=== PATIENT | male | born 2000 | race Caucasian/White ===

== ENCOUNTER 2021-05-27 07:41 | Outpatient (REF) | payer OTHER, MEDICAID, SELFPAY ==
[2021-05-27 10:50] LABS: Alanine Aminotransferase 14 U/L (0-40); Albumin Level 4.5 g/dL (3.5-5.0); Alkaline Phosphatase 78 U/L (39-117); Anion Gap 10 (12-20); Aspartate Amino Transferase 14 U/L (5-37); Bilirubin Total 3.2 mg/dL (0.0-1.0); Blood Urea Nitrogen 11 mg/dL (9-16); Calcium 10.1 mg/dL (8.4-10.2); Carbon Dioxide 31 mmol/L (22-29); Chloride 103 mmol/L (96-108); Cholesterol 133 mg/dL; Estimated Glomerular Filt Rate > 60; Glucose Fasting 88 mg/dL (60-99); HDL Cholesterol 47 mg/dL; LDL Cholesterol Calculated 74 mg/dl; Potassium 4.3 mmol/L (3.3-5.1); Sodium 140 mmol/L (135-145); Total Protein 7.2 g/dL (6.5-8.0); Triglycerides 61 mg/dL
[2021-05-27 11:13] LABS: TSH reflex Free T4 1.63 uIU/mL (0.32-4.0)
== END 2021-05-27 07:42 | disposition home or self-care (01) ==
LOC: HO.WFDLDS 07:41
PROVIDERS: Visit Provider Family Medicine
DX: Z00.00 Encounter for general adult medical examination without abnormal findings (principal)
CPT/HCPCS: 36415; 80053; 80061; 84443

== ENCOUNTER 2021-07-06 07:42 | Outpatient (REF) | payer OTHER, MEDICAID, SELFPAY ==
[2021-07-06 11:44] LABS: MANUAL DIFF FLAG NO
[2021-07-06 11:51] LABS: Basophils Percent Auto 0.4 % (0-2); Eosinophils Absolute Auto 0.7 X10*3/uL (0.0-0.4); Eosinophils Percent Auto 10.3 % (0-4); Hematocrit 49.1 % (42.0-52.0); Hemoglobin 16.6 g/dl (14.0-18.0); INTERNATIONAL NORM RATIO 1.1 (0.9-1.1); Imm Gran Abs Auto 0.01 X10*3/uL (0.00-0.03); Imm Gran Pct Auto 0.1 % (0.0-0.4); Lymphocytes Absolute Auto 2.9 X10*3/uL (1.2-4.9); Lymphocytes Percent Auto 41.5 % (20-40); Mean Corpuscular HGB Conc 33.8 g/dl (31.0-36.0); Mean Corpuscular Hemoglobin 28.9 pg (27.0-33.0); Mean Corpuscular Volume 85.5 fL (80.0-98.0); Mean Platelet Volume 11.2 fL (9.4-12.4); Monocytes Absolute Auto 0.5 X10*3/uL (0.1-1.2); Monocytes Percent Auto 6.9 % (2-11); Neutrophils Absolute Auto 2.8 x10*3/uL (2.0-8.3); Neutrophils Percent Auto 40.8 % (45-73); Platelet Count 296 X10*3/uL (160-400); Prothrombin Time 12.1 SEC (9.9-13.0); Red Blood Count 5.74 X10*6/uL (4.60-5.80); Red Cell Distribution Width 12.6 % (11.0-16.0); White Blood Count 6.9 X10*3/uL (4.8-10.8)
[2021-07-06 12:40] LABS: HBc Num1 0.11 S/CO (0.00-0.79); Hepatitis B Core Antibody Nonreactive (Nonreactive)
[2021-07-06 12:42] LABS: Alanine Aminotransferase 15 U/L (0-40); Albumin Level 4.8 g/dL (3.5-5.0); Alkaline Phosphatase 75 U/L (39-117); Aspartate Amino Transferase 15 U/L (5-37); Bilirubin Direct 0.5 mg/dL (0.0-0.5); Bilirubin Total 1.6 mg/dL (0.0-1.0); HBS Num1 2.43 mIU/mL (0-7.99); HBsAGNum1 0.22 S/CO (0.00-0.99); Hepatitis B Surface Antigen Negative (Negative); Total Protein 7.8 g/dL (6.5-8.0); ~HepC Num1 0.23 S/CO (0.00-0.79); ~Hepatitis B Surface Antibody NONREACTIVE (Nonreactive); ~Hepatitis C Antibody Nonreactive (Nonreactive)
== END 2021-07-06 07:43 | disposition home or self-care (01) ==
LOC: HO.WFDLDS 07:42
PROVIDERS: Visit Provider Family Medicine
DX: Z00.00 Encounter for general adult medical examination without abnormal findings (principal); R17 Unspecified jaundice
CPT/HCPCS: 36415; 80076; 85025; 85610; 86704; 86706; 86803; 87340

== ENCOUNTER 2022-03-15 08:53 | Outpatient (REF) | payer OTHER, MEDICAID, SELFPAY ==
[2022-03-15 11:53] LABS: Alanine Aminotransferase 19 U/L (0-40); Albumin Level 4.5 g/dL (3.5-5.0); Alkaline Phosphatase 82 U/L (39-117); Anion Gap 11 (12-20); Aspartate Amino Transferase 18 U/L (5-37); Bilirubin Total 1.4 mg/dL (0.0-1.0); Blood Urea Nitrogen 10 mg/dL (9-16); Calcium 9.6 mg/dL (8.4-10.2); Carbon Dioxide 27 mmol/L (22-29); Chloride 105 mmol/L (96-108); Estimated Glomerular Filt Rate > 60; Glucose Random 79 mg/dL (60-115); Potassium 4.5 mmol/L (3.3-5.1); Sodium 138 mmol/L (135-145); Total Protein 7.3 g/dL (6.5-8.0)
[2022-03-15 11:56] LABS: Bilirubin Direct 0.5 mg/dL (0.0-0.5); Bilirubin Total 1.2 mg/dL (0.0-1.0)
== END 2022-03-15 08:54 | disposition home or self-care (01) ==
LOC: HO.WFDLDS 08:53
PROVIDERS: Visit Provider Family Medicine
DX: R17 Unspecified jaundice (principal)
CPT/HCPCS: 36415; 80053; 82247; 82248

== ENCOUNTER 2022-09-24 13:01 | Outpatient (REF) | payer OTHER, MEDICAID, SELFPAY ==
--- NOTE | ~2022-09-24 | XR_ITS ---
EXAMINATION: XR CHEST CLINICAL INFORMATION: Cough COMPARISON: None TECHNIQUE: 2 views of the chest were obtained. FINDINGS: No significant abnormality is noted involving the heart, lungs, mediastinum, bony thorax or soft tissues. XR/XR chest 2V IMPRESSION: Unremarkable examination.
== END 2022-09-24 13:02 | disposition home or self-care (01) ==
LOC: HO.HMGCX 13:01
PROVIDERS: PCP Family Medicine; Visit Provider Family Medicine
DX: R05.9 Cough, unspecified (principal)
CPT/HCPCS: 71046

== ENCOUNTER 2023-07-05 14:07 | Outpatient (AMB) | payer OTHER, MEDICAID, SELFPAY ==
--- NOTE | 2023-07-05 14:11 | A.OFFPC_ITS ---
Vital Signs 07/05/23 14:12 Height 5 ft 8 in Weight 168 lb 4 oz BMI 25.6 BP 124/80 Blood Pressure Location Lt brachial Position Sitting Pulse 77 Pulse Source Pulse Oximeter Pulse Oximetry (%) 98 Intake Visit Reasons: CPE Intake Note: Patient is here for his physical today. Allergies red dye Allergy (Verified 07/05/23 14:15) Hives Seasonal Allergies Allergy (Verified 07/05/23 14:15) Unknown Tobacco use date assessed: 07/05/23 Dental Screening Dental Screen Date: 07/05/23 Did you have a dental visit in the last 12 months?: Yes Did you have a dental problem in the last 6 months where you did not have access to dental care?: No Was dental information given to patient?: Patient has dentist HPI CPE HPI Details 22 y/o male presents for a CPE with f/u labs and health maintenance. No recent labs to review. He sees his eye doctor yearly. Pt reports an ongoing cough. HPI Comments History of Present Illness Details Documentation assistance for Lyndon Martínez MD, was provided by Rubén Quintana, Warrant Clerk on 07/05/2023 2:32 PM EST. I, Dr. Martínez, have read, observed, and verified documentation. REPLACED BY [facility] Surgical History History of wisdom tooth extraction Family History Mother No problems noted. Father No problems noted. Other ADHD Social History Housing: House Alcohol intake: never Patient Tobacco Use Status: Never used Tobacco e-Cigarette/Vaping Use: Never Used Second Hand Smoke Exposure: No service: No Current occupational status: employed and student Current occupational exposures/hazards: No Cognitive needs: No Hearing needs: No Vision needs: No Questionnaire Thrive Questionnaire Date Thrive assessed: 06/10/21 MARGE-7 AMB Questionnaire MARGE-7 Date MARGE - 7 assessed: 06/17/22 Source: Developed by Drs. Horacio Soto, Yaa Figueroa, Scout Reyez and colleagues, with an educational john from [employer]. Review of Systems Const Denies chills, Denies fatigue, Denies fever(s), Denies headache(s) and Denies weakness Eyes Denies change in vision ENT Denies dizziness, Denies headache(s), Denies hearing loss, Denies nasal congestion, Denies sinus pain, Denies sinus pressure and Denies sore throat Card Denies chest pain, Denies lightheadedness, Denies dyspnea and Denies other (palpitations) Resp Reports cough, Denies dyspnea and Denies wheezing GI Denies abdominal pain, Denies melena, Denies hematochezia, Denies change in bowel habits, Denies dyspepsia and Denies nausea Denies hematuria and Denies dysuria Musc Denies abnormal gait, Denies myalgias, Denies arthralgias, Denies numbness and Denies tingling Skin/Breast Denies rash, Denies unusual bruising and Denies wounds Neuro Denies abnormal gait, Denies dizziness, Denies headache(s), Denies memory loss, Denies numbness, Denies Sensory deficit (Neuro), Denies tingling and Denies weakness Psych Denies anxiety, Denies depression and Denies memory loss Endo Denies cold intolerance, Denies fatigue, Denies heat intolerance, Denies polydipsia and Denies polyuria Simon/Lymph Denies easy bleeding and Denies easy bruising Aller/Immun Denies wheezing Physical exam (Primary Care) Vital Signs: Last Vital Signs Pulse 77 07/05/23 14:12 BP 124/80 07/05/23 14:12 Pulse Ox 98 07/05/23 14:12 BMI result Body Mass Index 25.6 Tobacco/Smoking Status: Tobacco use Status Tobacco use date assessed 07/05/23 07/05/23 14:16 Patient Tobacco Use Status Never used Tobacco 07/05/23 14:12 e-Cigarette/Vaping Use Never Used 07/05/23 14:12 Thrive Assessment: Date of Thrive Assessment Date Thrive assessed 06/10/21 07/05/23 14:12 Const General: no acute distress, well developed, alert and awake Nutritional Appearance: well nourished Orientation/consciousness: patient oriented x3 HENMT Head: Yes normocephalic and Yes atraumatic Ears: hearing grossly normal bilaterally and TM's normal bilaterally General nose exam: Normal external nose present and Normal nares present Mouth: Normal oral and palatal mucosa present and moist mucous membranes Teeth and gingiva: dentition normal Throat: Yes posterior oropharynx normal Eyes General: appearance normal, both eyes and all related structures Pupils: Equal, round and reactive pupils present and Pupil accommodation reflex normal EOM: EOMs intact bilaterally Neck Neck: Yes normal visual inspection, Yes no lymphadenopathy and Yes trachea midli ne Thyroid: Thyroid normal Carotids: no bruits Lymphatic: no lymphadenopathy noted Chest Chest palpation & inspection: normal inspection of the chest Resp Effort & Inspection: normal respiratory effort Auscultation: clear to auscultation bilaterally Cardio Rate: regular rate Rhythm: regular rhythm Heart sounds: S1 normal heart sound present, S2 normal heart sound present, no gallops, no murmurs and no rubs Bruits: no abdominal aortic bruits and no carotid bruits GI Palpation (GI): No Abdominal aortic bruit present, Soft to palpation, nontender, No hepatosplenomegaly present and No Rebound tenderness present Auscultation: normal bowel sounds General: Yes no CVA tenderness Back/Spine/Pelvis Back: no CVA tenderness Cervical Spine: cervical ROM normal and No Cervical spine tenderness Thoracic/Lumbar Spine: thoraco-lumbar ROM normal, No pain with thoraco-lumbar ROM, No thoracic spinal tenderness and No lumbar spinal tenderness Skin Lesions: no lesions Rashes: no rashes Trauma: no lacerations or abrasions Wounds: no wounds Nails: normal Neuro General: patient oriented x3 Cranial nerves: Yes Equal, round and reactive pupils present Cognition (Neuro): normal cognition Gait exam (Neuro): Normal gait present Motor exam (neuro): 5/5 motor strength present throughout Sensory Exam: No Sensory deficit (Neuro) Deep tendon reflexes (DTR's): Right patellar reflex intensity grade: 2+ and Left patellar reflex intensity grade: 2+ Extrem General: Yes normal to inspection and No edema Psych Appearance: grossly normal Affect: normal affect Attitude: cooperative Thought process: Normal thought process present Assessment and Plan Assessment & Plan (1) Adult general medical exam: Code(s): Z00.00 - Encounter for general adult medical examination without abnormal findings Plan: 22-year-old?male?presents?for?complete?physical?exam Encouraged?healthy?diet?with?active?lifestyle?and?plenty?of?exercise (2) ADHD: Code(s): F90.9 - Attention-deficit hyperactivity disorder, unspecified type Plan: Stable?on?clonidine?index?methylphenidate (3) Aspergers' syndrome: Code(s): F84.5 - Asperger's syndrome Plan: Stable (4) Cough: Code(s): R05.9 - Cough, unspecified Plan: Continue?omeprazole?and?Flovent Albuterol?as?needed Coding Level of Care Code Est Pt Level 3 (96194) Est Pt Prev Care 18-39y(07823) Diagnoses Adult general medical exam Z00.00 ADHD F90.9 Aspergers' syndrome F84.5 Cough R05.9
[2023-07-05 14:12] VITALS: BP 124/80; PULSE 77; O2SAT 98; BMI 25.6
== END 2023-07-05 14:34 | disposition home or self-care (01) ==
PROVIDERS: PCP Family Medicine; Visit Provider Family Medicine
DX: Z00.00 Encounter for general adult medical examination without abnormal findings (principal); F90.9 Attention-deficit hyperactivity disorder, unspecified type; F84.5 Asperger's syndrome; R05.9 Cough, unspecified
CPT/HCPCS: 99395

== ENCOUNTER 2023-09-02 09:03 | Outpatient (REF) | payer OTHER, MEDICAID, SELFPAY ==
[2023-09-02 11:37] LABS: MANUAL DIFF FLAG NO
[2023-09-02 11:40] LABS: Basophils Percent Auto 0.2 % (0-2); Eosinophils Absolute Auto 0.7 X10*3/uL (0.0-0.4); Eosinophils Percent Auto 7.7 % (0-4); Hematocrit 49.3 % (42.0-52.0); Hemoglobin 16.6 g/dl (14.0-18.0); Imm Gran Abs Auto 0.02 X10*3/uL (0.00-0.03); Imm Gran Pct Auto 0.2 % (0.0-0.4); Lymphocytes Absolute Auto 2.8 X10*3/uL (1.2-4.9); Lymphocytes Percent Auto 30.5 % (20-40); Mean Corpuscular HGB Conc 33.7 g/dl (31.0-36.0); Mean Corpuscular Volume 83.1 fL (80.0-98.0); Mean Platelet Volume 10.8 fL (9.4-12.4); Monocytes Absolute Auto 0.8 X10*3/uL (0.1-1.2); Monocytes Percent Auto 8.4 % (2-11); Neutrophils Absolute Auto 4.9 x10*3/uL (2.0-8.3); Platelet Count 324 X10*3/uL (160-400); Red Blood Count 5.93 X10*6/uL (4.60-5.80); White Blood Count 9.2 X10*3/uL (4.8-10.8)
[2023-09-02 12:26] LABS: Alanine Aminotransferase 36 U/L (0-40); Albumin Level 4.5 g/dL (3.5-5.0); Alkaline Phosphatase 87 U/L (39-117); Anion Gap 13 (12-20); Aspartate Amino Transferase 22 U/L (5-37); Blood Urea Nitrogen 14 mg/dL (9-16); Calcium 10.1 mg/dL (8.4-10.2); Carbon Dioxide 29 mmol/L (22-29); Chloride 102 mmol/L (96-108); Cholesterol 169 mg/dL (<200); Estimated Glomerular Filt Rate > 60; Glucose Fasting 95 mg/dL (60-99); HDL Cholesterol 48 mg/dL (>40); LDL Cholesterol Calculated 94 mg/dL (<100); Potassium 4.1 mmol/L (3.3-5.1); Sodium 140 mmol/L (135-145); Triglycerides 135 mg/dL (<150)
== END 2023-09-02 09:04 | disposition home or self-care (01) ==
LOC: HO.WFDLDS 09:03
PROVIDERS: Visit Provider Family Medicine
DX: Z00.00 Encounter for general adult medical examination without abnormal findings (principal); I10 Essential (primary) hypertension
CPT/HCPCS: 36415; 80053; 80061; 84443; 85025

== ENCOUNTER 2023-12-07 15:38 | Outpatient (AMB) | payer OTHER, MEDICAID, SELFPAY ==
--- NOTE | 2023-12-07 15:52 | MHC.PC.OV ---
Vital Signs 12/07/23 15:59 Height 5 ft 8 in Weight 181 lb 8 oz BMI 27.6 BP 104/72 Blood Pressure Location Rt brachial Position Sitting Respiration 14 Pulse 80 Pulse Source Pulse Oximeter Temp 98.1 F Temp Source Oral Pulse Oximetry (%) 97 Oxygen Delivery Method Room Air Intake Visit Reasons: f/u ADHD Intake Note: Follow up for ADHD Metrology Specialist Required: No Allergies red dye Allergy (Verified 12/07/23 15:52) Hives Seasonal Allergies Allergy (Verified 12/07/23 15:52) Unknown Medication List - Last Reconciled 12/07/23 by Lyndon Martínez MD albuterol sulfate 90 mcg/actuation 0 mcg inhalation clonidine HCl 0.1 mg PO BEDTIME 30 days dexmethylphenidate ER 25 mg PO QAM 30 days fluticasone propionate 110 mcg/actuation (Flovent HFA) 2 puffs inhalation DAILY omeprazole 20 mg PO DAILY Tobacco use date assessed: 12/07/23 Dental Screening Dental Screen Date: 12/07/23 Did you have a dental visit in the last 12 months?: Yes Did you have a dental problem in the last 6 months where you did not have access to dental care?: No Was dental information given to patient?: Patient has dentist HPI f/u ADHD HPI Details 22 y/o male presents to f/u ADHD. He is on dexymethylphenidate ER 25mg. He denies any problems with increased anxiety, appetite issues, difficulty sleeping. He notes it has been working well for him. He reports cough has resolved and has been tolerating omeprazole 20mg daily. [facility], [facility] Surgical History History of wisdom tooth extraction Family History Mother No problems noted. Father No problems noted. Other ADHD Social History (Updated 12/07/23 @ 15:56 by Yudy Herrera CMA) Housing: House Alcohol intake: never Patient Tobacco Use Status: Never used Tobacco e-Cigarette/Vaping Use: Never Used Second Hand Smoke Exposure: No service: No Current occupational status: employed and student Current occupational exposures/hazards: No Cognitive needs: No Hearing needs: No Vision needs: No Questionnaire PHQ-9 Over the last 2 weeks, how often have you been bothered by any of the following problems? 1. Little interest or pleasure in doing things: not at all 2. Feeling down, depressed, or hopeless: not at all 3. Trouble falling or staying asleep, or sleeping too much: not at all 4. Feeling tired or having little energy: not at all 5. Poor appetite or overeating: not at all 6. Feeling bad about yourself - or that you are a failure or have let yourself or your family down: not at all 7. Trouble concentrating on things, such as reading the newspaper or watching television: several days 8. Moving or speaking so slowly that other people could have noticed. Or the opposite - being so fidgety or restless that you have been moving around a lot more than usual: not at all 9. Thoughts that you would be better off or of hurting yourself in some way: not at all Total score: 1 66693 - PHQ-9 Billing: Yes Source: Developed by Drs. Horacio Soto, Yaa Figueroa, Scout Reyez and colleagues, with an educational john from [employer]. Thrive Questionnaire Date Thrive assessed: 12/07/23 I am a: Patient What is your living situation today?: I have a steady place to live Within the past 12 months, did the food you bought not last and you didn't have the money to get more?: Never true Within the past 12 months, did you worry whether your food would run out before you got money to buy more?: Never true Do you have trouble paying for medicines?: No Do you have trouble getting transportation to medical appointments?: No Do you have trouble paying your heating and electricity bill?: No Do you have trouble taking care of your child, family member or friend?: No Do you have trouble with day-to-day activities such as bathing, preparing meals, shopping, managing finances, etc.?: No Are you currently unemployed and looking for a job?: Yes Are you interested in more education?: No Please select the resources that you would like help with: Job search/training Currently or been in a relationship where the following occur: no concerns reported THRIVE Score: 0 AUDIT C Alcohol Use Questionnaire (AUDIT-C) 1. How often do you have a drink containing alcohol?: Never 3. How often do you have six or more drinks on one occasion?: Never Total Score: 0 MARGE-7 AMB Questionnaire MARGE-7 Date MARGE - 7 assessed: 12/07/23 Feeling nervous, anxious, or on edge: 0 = Not at all Not being able to stop or control worryin = Not at all Worrying too much about different things: 0 = Not at all Trouble relaxin = Nearly every day Being so restless that it is hard to sit still: 3 = Nearly every day Becoming easily annoyed or irritable: 0 = Not at all Feeling afraid as if something awful might happen: 0 = Not at all Total MARGE-7 score (0-4 normal; 5-9 mild; 10-14 moderate; 15-21 severe): 6 Source: Developed by Drs. Horacio Soto, Yaa Figueroa, Scout Reyez and colleagues, with an educational john from [employer]. MARGE-7 Assessment Billing MARGE-7 Assessment Tool: MARGE-7 Assessment 26514 Review of Systems Const Denies chills, Denies fatigue, Denies fever(s), Denies headache(s) and Denies weakness ENT Denies dizziness and Denies headache(s) Card Denies dyspnea Resp Denies cough, Denies dyspnea, Denies wheezing and Denies other (shortness of breath) Musc Denies numbness and Denies tingling Neuro Denies dizziness, Denies headache(s), Denies numbness, Denies tingling and Denies weakness Psych Denies anxiety and Denies depression Endo Denies fatigue Aller/Immun Denies wheezing Physical exam (Primary Care) Vital Signs: Last Vital Signs Temp 98.1 F 12/07/23 15:59 Pulse 80 12/07/23 15:59 Resp 14 12/07/23 15:59 BP 104/72 12/07/23 15:59 Pulse Ox 97 12/07/23 15:59 Oxygen Delivery Method Room Air 12/07/23 15:59 BMI result Body Mass Index 27.6 Tobacco/Smoking Status: Tobacco use Status Tobacco use date assessed 12/07/23 12/07/23 16:00 Patient Tobacco Use Status Never used Tobacco 12/07/23 16:00 e-Cigarette/Vaping Use Never Used 12/07/23 16:00 PHQ-9: PHQ-9 Score PHQ-9: Total score 1 12/07/23 16:19 Thrive Assessment: Date of Thrive Assessment Date Thrive assessed 12/07/23 12/07/23 16:00 Currently or been in a relationship where the following occur: no concerns reported Const General: well developed; No acute distress Nutritional Appearance: well nourished Orientation/consciousness: patient oriented x3 HENMT Head: Yes normocephalic and Yes atraumatic Eyes General: appearance normal, both eyes and all related structures Pupils: Equal, round and reactive pupils present EOM: EOMs intact bilaterally Resp Effort & Inspection: normal respiratory effort Auscultation: clear to auscultation bilaterally Cardio Rate: regular rate Rhythm: regular rhythm Heart sounds: S1 normal heart sound present, S2 normal heart sound present, no gallops, no murmurs and no rubs Neuro General: patient oriented x3 and gait normal Cranial nerves: Yes Equal, round and reactive pupils present Psych Affect: normal affect Assessment and Plan Assessment & Plan (1) ADHD: Code(s): F90.9 - Attention-deficit hyperactivity disorder, unspecified type Plan: Patient?is?taking?Focalin?without?any?problems. Medication?is?effective?at?current?dose No?anxiety,?appetite?suppression?or?sleep?disturbances?from?this?medication Continue?current?medication (2) Cough: Code(s): R05.9 - Cough, unspecified Plan: Patient?had?a?dry?irritating?cough?which?improved?with?omeprazole.??He?has?been?then?this?for?a?few?months. He?will?try?discontinuing?medication.??If?cough?resumes?he?will?resume?omeprazole?and?let?me?know.??Otherwise?can?discontinue?omeprazole Coding Level of Care Code Est Pt Level 3 (97673) Diagnoses ADHD F90.9 Cough R05.9 Additional Codes MARGE-7 Assessment Billing - MARGE-7 Assessment Tool: MARGE-7 Assessment 25935 ([id number])
[2023-12-07 15:59] VITALS: BP 104/72; PULSE 80; RESP 14; TEMP 36.7; O2SAT 97; BMI 27.6
== END 2023-12-07 16:31 | disposition home or self-care (01) ==
PROVIDERS: PCP Family Medicine; Visit Provider Family Medicine
DX: F90.9 Attention-deficit hyperactivity disorder, unspecified type (principal); R05.9 Cough, unspecified
CPT/HCPCS: 99213

== ENCOUNTER 2024-04-02 15:58 | Outpatient (AMB) | payer OTHER, MEDICAID, SELFPAY ==
--- NOTE | 2024-04-02 16:08 | A.OFFPC_ITS ---
Vital Signs 04/02/24 16:09 Height 5 ft 8 in Weight 178 lb 8 oz BMI 27.1 BP 106/64 Blood Pressure Location Lt brachial Position Sitting Respiration 16 Pulse 71 Pulse Source Pulse Oximeter Temp 97.9 F Temp Source Tympanic Pulse Oximetry (%) 98 Oxygen Delivery Method Room Air Intake Visit Reasons: f/u ADHD Intake Note: follow up for ADHD Allergies red dye Allergy (Verified 04/02/24 16:09) Hives Seasonal Allergies Allergy (Verified 04/02/24 16:09) Unknown Medication List - Last Reconciled 04/02/24 by Lyndon Martínez MD albuterol sulfate 90 mcg/actuation 0 mcg inhalation clonidine HCl 0.1 mg PO BEDTIME 30 days dexmethylphenidate ER 25 mg PO QAM 30 days fluticasone propionate 110 mcg/actuation (Flovent HFA) 2 puffs inhalation DAILY omeprazole 20 mg PO DAILY Tobacco use date assessed: 12/07/23 Dental Screening Dental Screen Date: 12/07/23 HPI f/u ADHD HPI Details 23 y/o male presents to f/u ADHD. Also f/u on cough which had improved with omeprazole. He is trialing discontinuing omeprazole to see if he still needs it. Has been taking dexmethyplenidate. Has been using it as needed. Denies any issues with appetite,sleep, anxiety. He notes cough resumed when he discontinued omeprazole. HPI Comments History of Present Illness Details Documentation assistance for Lyndon Martínez MD, was provided by Rubén Quintana, Nuclear Physics Teacher on 04/02/2024 at 4:27 PM EST. I, Dr. Martínez, have read, observed, and verified documentation. [facility] Surgical History History of wisdom tooth extraction Family History Mother No problems noted. Father No problems noted. Other ADHD Social History (Updated 12/07/23 @ 15:56 by Yudy Herrera CMA) Housing: House Alcohol intake: never Patient Tobacco Use Status: Never used Tobacco e-Cigarette/Vaping Use: Never Used Second Hand Smoke Exposure: No service: No Current occupational status: employed and student Current occupational exposures/hazards: No Cognitive needs: No Hearing needs: No Vision needs: No Questionnaire Thrive Questionnaire Date Thrive assessed: 12/07/23 MARGE-7 AMB Questionnaire MARGE-7 Date MARGE - 7 assessed: 12/07/23 Source: Developed by Drs. Horacio Soto, Yaa Figueroa, Scout Reyez and colleagues, with an educational john from [employer]. Review of Systems Const Denies chills, Denies fatigue, Denies fever(s), Denies headache(s) and Denies weakness ENT Denies dizziness and Denies headache(s) Card Denies chest pain, Denies lightheadedness, Denies dyspnea and Denies other (Palpitations) Resp Denies cough, Denies dyspnea, Denies wheezing and Denies other ( shortness of breath) Musc Denies numbness and Denies tingling Neuro Denies dizziness, Denies headache(s), Denies numbness, Denies tingling, Denies paresthesias and Denies weakness Psych Denies anxiety and Denies depression Endo Denies fatigue Aller/Immun Denies wheezing Physical exam (Primary Care) Vital Signs: Last Vital Signs Temp 97.9 F 04/02/24 16:09 Pulse 71 04/02/24 16:09 Resp 16 04/02/24 16:09 BP 106/64 04/02/24 16:09 Pulse Ox 98 04/02/24 16:09 Oxygen Delivery Method Room Air 04/02/24 16:09 BMI result Body Mass Index 27.1 Tobacco/Smoking Status: Tobacco use Status Tobacco use date assessed 12/07/23 04/02/24 16:12 Patient Tobacco Use Status Never used Tobacco 04/02/24 16:12 e-Cigarette/Vaping Use Never Used 04/02/24 16:12 Thrive Assessment: Date of Thrive Assessment Date Thrive assessed 12/07/23 04/02/24 16:12 Const General: no acute distress and well developed Nutritional Appearance: well nourished Orientation/consciousness: patient oriented x3 HENMT Head: Yes normocephalic and Yes atraumatic Eyes General: appearance normal, both eyes and all related structures Pupils: Equal, round and reactive pupils present EOM: EOMs intact bilaterally Resp Effort & Inspection: normal respiratory effort Auscultation: clear to auscultation bilaterally Cardio Rate: regular rate Rhythm: regular rhythm Heart sounds: S1 normal heart sound present, S2 normal heart sound present, no gallops, no murmurs and no rubs Neuro General: patient oriented x3 and gait normal Cranial nerves: Yes Equal, round and reactive pupils present Psych Affect: normal affect Assessment and Plan Assessment & Plan (1) ADHD: Code(s): F90.9 - Attention-deficit hyperactivity disorder, unspecified type Plan: Patient?has?been?on?holiday?from?[place] during?this?summer Medication?has?not?been?causing?any?problems?with?anxiety,?sleep?or?appetite?and ?has?been?working?when?he?has?needed?it Will?continue?medication (2) Cough: Code(s): R05.9 - Cough, unspecified Plan: Cough?resumed?when?he?discontinued?omeprazole Will?have?him?seen?by?GI?for?reflux?and?likely?microaspiration (3) GERD (gastroesophageal reflux disease): Code(s): K21.9 - Gastro-esophageal reflux disease without esophagitis Orders: Orders Comprehensive [place]. Panel Fast Today Z00.00 - Encounter for general adult medical examination without abnormal findings Lipid Panel Today Z00.00 - Encounter for general adult medical examination without abnormal findings Complete Blood Count Auto Diff Today Z00.00 - Encounter for general adult medical examination without abnormal findings Microalbumin, Random (w Creat) Today I10 - Essential (primary) hypertension TSH reflex Free T4 Today Z00.00 - Encounter for general adult medical examina tion without abnormal findings UA and rflx microscopic Today Z00.00 - Encounter for general adult medical examination without abnormal findings Referrals Gastroenterology Referral K21.9 - Gastro-esophageal reflux disease without esophagitis, R05.9 - Cough, unspecified Coding Level of Care Code Est Pt Level 4 (10016) Diagnoses ADHD F90.9 Cough R05.9 GERD (gastroesophageal reflux disease) K21.9
[2024-04-02 16:09] VITALS: BP 106/64; PULSE 71; RESP 16; TEMP 36.6; O2SAT 98; BMI 27.1
== END 2024-04-02 16:28 | disposition home or self-care (01) ==
PROVIDERS: PCP Family Medicine; Visit Provider Family Medicine
DX: F90.9 Attention-deficit hyperactivity disorder, unspecified type (principal); R05.9 Cough, unspecified; K21.9 Gastro-esophageal reflux disease without esophagitis
CPT/HCPCS: 99214

== ENCOUNTER 2024-07-24 09:26 | Outpatient (REF) | payer OTHER, MEDICAID, SELFPAY ==
[2024-07-24 11:12] LABS: MANUAL DIFF FLAG NO
[2024-07-24 11:17] LABS: Appearance Urine Clear; Color Urine Yellow; Glucose Urine UA Negative (Negative); Leukocyte Esterase Urine Small (1+) (Negative); Nitrite Urine Negative (Negative); Specific Gravity - Urine 1.025 (1.005-1.025); UMIC TRIGGER UA YES; Urine Blood Negative (Negative); Urine Ketones Negative (Negative); Urine Protein Trace mg/dL (Neg-Trace)
[2024-07-24 11:22] LABS: Basophils Percent Auto 0.3 % (0-2); Eosinophils Absolute Auto 0.5 X10*3/uL (0.0-0.4); Eosinophils Percent Auto 6.9 % (0-4); Hematocrit 49.8 % (42.0-52.0); Hemoglobin 16.8 g/dl (14.0-18.0); Imm Gran Abs Auto 0.02 X10*3/uL (0.00-0.03); Imm Gran Pct Auto 0.3 % (0.0-0.4); Lymphocytes Absolute Auto 2.7 X10*3/uL (1.2-4.9); Lymphocytes Percent Auto 36.4 % (20-40); Mean Corpuscular HGB Conc 33.7 g/dl (31.0-36.0); Mean Corpuscular Hemoglobin 28.5 pg (27.0-33.0); Mean Corpuscular Volume 84.6 fL (80.0-98.0); Mean Platelet Volume 10.9 fL (9.4-12.4); Monocytes Absolute Auto 0.6 X10*3/uL (0.1-1.2); Monocytes Percent Auto 8.1 % (2-11); Neutrophils Absolute Auto 3.5 x10*3/uL (2.0-8.3); Platelet Count 309 X10*3/uL (160-400); Red Blood Count 5.89 X10*6/uL (4.60-5.80); White Blood Count 7.4 X10*3/uL (4.8-10.8)
[2024-07-24 11:37] LABS: Bacteria Urine None Seen (None Seen); Hyaline Casts Urine 0-2 /LPF (0-2); RBC Urine 0-2 /HPF (0-2); Squamous Epithelial Cell Urine 0-2 /HPF (0-2)
[2024-07-24 11:59] LABS: Creatinine Urine 238.83 mg/dL; Microalbum/Creatinine Ratio Ur 8.3 ug/mg cr (<30)
[2024-07-24 12:11] LABS: Alanine Aminotransferase 32 U/L (0-40); Albumin Level 4.5 g/dL (3.5-5.0); Alkaline Phosphatase 97 U/L (39-117); Anion Gap 10 (12-20); Aspartate Amino Transferase 24 U/L (5-37); Bilirubin Total 1.1 mg/dL (0.0-1.0); Blood Urea Nitrogen 10 mg/dL (9-16); Carbon Dioxide 31 mmol/L (22-29); Chloride 104 mmol/L (96-108); Cholesterol 160 mg/dL (<200); Estimated Glomerular Filt Rate > 60; Glucose Fasting 96 mg/dL (60-99); HDL Cholesterol 45 mg/dL (>40); LDL Cholesterol Calculated 97 mg/dL (<100); Sodium 141 mmol/L (135-145); Total Protein 7.7 g/dL (6.5-8.0); Triglycerides 92 mg/dL (<150)
[2024-07-24 12:19] LABS: TSH reflex Free T4 0.93 uIU/mL (0.32-4.0)
== END 2024-07-24 09:27 | disposition home or self-care (01) ==
LOC: HO.WFDLDS 09:26
PROVIDERS: Visit Provider Family Medicine
DX: Z00.00 Encounter for general adult medical examination without abnormal findings (principal); I10 Essential (primary) hypertension
CPT/HCPCS: 36415; 80053; 80061; 81001; 82043; 82570; 84443; 85025

== ENCOUNTER 2024-07-27 08:50 | Outpatient (AMB) | payer OTHER, MEDICAID, SELFPAY ==
--- NOTE | 2024-07-27 09:11 | A.OFFPC_ITS ---
Vital Signs 07/27/24 09:14 Height 5 ft 8 in Weight 175 lb BMI 26.6 BP 106/64 Blood Pressure Location Lt brachial Position Sitting Respiration 14 Pulse 70 Pulse Source Pulse Oximeter Temp 97.9 F Temp Source Oral Pulse Oximetry (%) 98 Oxygen Delivery Method Room Air Intake Visit Reasons: CPE with f/u labs and health maint. Intake Note: cpe Allergies red dye Allergy (Verified 07/27/24 09:12) Hives Seasonal Allergies Allergy (Verified 07/27/24 09:12) Unknown Tobacco use date assessed: 07/27/24 Dental Screening Dental Screen Date: 07/27/24 Did you have a dental visit in the last 12 months?: Yes Did you have a dental problem in the last 6 months where you did not have access to dental care?: No Was dental information given to patient?: Patient has dentist HPI CPE with f/u labs and health maint. HPI Details 23 y/o male presents for a CPE with f/u labs and health maintenance. Labs drawn 07/24/24. Reviewed labs with pt. Triglycerides 92. TC 160. LDL 97. HDL 45. TSH 0.93. Continues taking omeprazole 20mg. Has an appt. with GI next week Tuesday. Denies any problems with ADHD meds. HPI Comments History of Present Illness Details Documentation assistance for Lyndon Martínez MD, was provided by Rubén Quintana, Station Detective on 07/27/2024 at 9:27 AM EST. I, Dr. Martínez, have read, observed, and verified documentation. [facility] Surgical History History of wisdom tooth extraction Family History Mother No problems noted. Father No problems noted. Other ADHD Social History Housing: House Alcohol intake: never Patient Tobacco Use Status: Never used Tobacco e-Cigarette/Vaping Use: Never Used Second Hand Smoke Exposure: No service: No Current occupational status: employed and student Current occupational exposures/hazards: No Cognitive needs: No Hearing needs: No Vision needs: No Questionnaire PHQ-9 Over the last 2 weeks, how often have you been bothered by any of the following problems? 1. Little interest or pleasure in doing things: not at all 2. Feeling down, depressed, or hopeless: not at all 3. Trouble falling or staying asleep, or sleeping too much: not at all 4. Feeling tired or having little energy: not at all 5. Poor appetite or overeating: not at all 6. Feeling bad about yourself - or that you are a failure or have let yourself or your family down: not at all 7. Trouble concentrating on things, such as reading the newspaper or watching television: not at all 8. Moving or speaking so slowly that other people could have noticed. Or the opposite - being so fidgety or restless that you have been moving around a lot more than usual: not at all 9. Thoughts that you would be better off or of hurting yourself in some way: not at all Total score: 0 Depression Screening Interpretation: Negative Depression Screening Done: Yes 44805 - PHQ-9 Billing: Yes Source: Developed by Drs. Horacio Soto, Yaa Figueroa, Scout Reyez and colleagues, with an educational john from [employer]. Thrive Questionnaire Date Thrive assessed: 07/27/24 I am a: Patient What is your living situation today?: I have a steady place to live Within the past 12 months, did the food you bought not last and you didn't have the money to get more?: Never true Within the past 12 months, did you worry whether your food would run out before you got money to buy more?: Never true Do you have trouble paying for medicines?: No Do you have trouble getting transportation to medical appointments?: No Do you have trouble paying your heating and electricity bill?: No Do you have trouble taking care of your child, family member or friend?: No Do you have trouble with day-to-day activities such as bathing, preparing meals, shopping, managing finances, etc.?: No Are you currently unemployed and looking for a job?: No Are you interested in more education?: No Please select the resources that you would like help with: Transportation and Job search/training Currently or been in a relationship where the following occur: I choose not to answer THRIVE Score: 0 AUDIT C Alcohol Use Questionnaire (AUDIT-C) 1. How often do you have a drink containing alcohol?: Never 3. How often do you have six or more drinks on one occasion?: Never Total Score: 0 MARGE-7 AMB Questionnaire MARGE-7 Date MARGE - 7 assessed: 07/27/24 Feeling nervous, anxious, or on edge: 0 = Not at all Not being able to stop or control worryin = Not at all Worrying too much about different things: 0 = Not at all Trouble relaxin = Not at all Being so restless that it is hard to sit still: 0 = Not at all Becoming easily annoyed or irritable: 0 = Not at all Feeling afraid as if something awful might happen: 0 = Not at all Total MARGE-7 score (0-4 normal; 5-9 mild; 10-14 moderate; 15-21 severe): 0 Source: Developed by Drs. Horacio Soto, Yaa Figueroa, Scout Reyez and colleagues, with an educational john from [employer]. MARGE-7 Assessment Billing MARGE-7 Assessment Tool: MARGE-7 Assessment 61167 Review of Systems Const Denies chills, Denies fatigue, Denies fever(s), Denies headache(s) and Denies weakness Eyes Denies change in vision ENT Denies dizziness, Denies headache(s), Denies hearing loss, Denies nasal congestion, Denies sinus pain, Denies sinus pressure and Denies sore throat Card Denies chest pain, Denies lightheadedness, Denies dyspnea and Denies other (palpitations) Resp Denies cough, Denies dyspnea and Denies wheezing GI Denies abdominal pain, Denies melena, Denies hematochezia, Denies change in bowel habits, Denies dyspepsia and Denies nausea Denies hematuria and Denies dysuria Musc Denies abnormal gait, Denies myalgias, Denies arthralgias, Denies numbness and Denies tingling Skin/Breast Denies rash, Denies unusual bruising and Denies wounds Neuro Denies abnormal gait, Denies dizziness, Denies headache(s), Denies memory loss, Denies numbness, Denies Sensory deficit (Neuro), Denies tingling and Denies weakness Psych Denies anxiety, Denies depression and Denies memory loss Endo Denies cold intolerance, Denies fatigue, Denies heat intolerance, Denies polydipsia and Denies polyuria Simon/Lymph Denies easy bleeding and Denies easy bruising Aller/Immun Denies wheezing Physical exam (Primary Care) Vital Signs: Last Vital Signs Temp 97.9 F 07/27/24 09:14 Pulse 70 07/27/24 09:14 Resp 14 07/27/24 09:14 BP 106/64 07/27/24 09:14 Pulse Ox 98 07/27/24 09:14 Oxygen Delivery Method Room Air 07/27/24 09:14 BMI result Body Mass Index 26.6 Tobacco/Smoking Status: Tobacco use Status Tobacco use date assessed 07/27/24 07/27/24 09:17 Patient Tobacco Use Status Never used Tobacco 07/27/24 09:17 e-Cigarette/Vaping Use Never Used 07/27/24 09:17 PHQ-9: PHQ-9 Score PHQ-9: Total score 0 07/27/24 09:23 Depression Screening Interpretation: Negative Thrive Assessment: Date of Thrive Assessment Date Thrive assessed 07/27/24 07/27/24 09:17 Currently or been in a relationship where the following occur: I choose not to answer Const General: no acute distress, well developed, alert and awake Nutritional Appearance: well nourished Orientation/consciousness: patient oriented x3 HENMT Head: Yes normocephalic and Yes atraumatic Ears: hearing grossly normal bilaterally and TM's normal bilaterally General nose exam: Normal external nose present and Normal nares present Mouth: Normal oral and palatal mucosa present and moist mucous membranes Teeth and gingiva: dentition normal Throat: Yes posterior oropharynx normal Eyes General: appearance normal, both eyes and all related structures Pupils: Equal, round and reactive pupils present and Pupil accommodation reflex normal EOM: EOMs intact bilaterally Neck Neck: Yes normal visual inspection, Yes no lymphadenopathy and Yes trachea midline Thyroid: Thyroid normal Carotids: no bruits Lymphatic: no lymphadenopathy noted Chest Chest palpation & inspection: normal inspection of the chest Resp Effort & Inspection: normal respiratory effort Auscultation: clear to auscultation bilaterally Cardio Rate: regular rate Rhythm: regular rhythm Heart sounds: S1 normal heart sound present, S2 normal heart sound present, no gallops, no murmurs and no rubs Bruits: no abdominal aortic bruits and no carotid bruits GI Palpation (GI): No Abdominal aortic bruit present, Soft to palpation, nontender, No hepatosplenomegaly present and No Rebound tenderness present Auscultation: normal bowel sounds General: Yes no CVA tenderness Back/Spine/Pelvis Back: no CVA tenderness Cervical Spine: cervical ROM normal and No Cervical spine tenderness Thoracic/Lumbar Spine: thoraco-lumbar ROM normal, No pain with thoraco-lumbar ROM, No thoracic spinal tenderness and No lumbar spinal tenderness Skin Lesions: no lesions Rashes: no rashes Trauma: no lacerations or abrasions Wounds: no wounds Nails: normal Neuro General: patient oriented x3 Cranial nerves: Yes Equal, round and reactive pupils present Cognition (Neuro): normal cognition Gait exam (Neuro): Normal gait present Motor exam (neuro): 5/5 motor strength present throughout Sensory Exam: No Sensory deficit (Neuro) Deep tendon reflexes (DTR's): Right patellar reflex intensity grade: 2+ and Left patellar reflex intensity grade: 2+ Extrem General: Yes normal to inspection and No edema Psych Appearance: grossly normal Affect: normal affect Attitude: cooperative Thought process: Normal thought process present Coding Level of Care Code Est Pt Level 3 (35148) Est Pt Prev Care 18-39y(84792) Diagnoses Adult general medical exam Z00.00 GERD (gastroesophageal reflux disease) K21.9 ADHD F90.9 Aspergers' syndrome F84.5 Additional Codes MARGE-7 Assessment Billing - MARGE-7 Assessment Tool: MARGE-7 Assessment 04392 ([id number]) PHQ-9 - 30102 - PHQ-9 Billing: Yes ([id number]) Assessment & Plan Assessment & Plan (1) Adult general medical exam: Code(s): Z00.00 - Encounter for general adult medical examination without abnormal findings Category: Medical Plan: 23-year-old?male?presents?for?complete?physical?exam (2) GERD (gastroesophageal reflux disease): Code(s): K21.9 - Gastro-esophageal reflux disease without esophagitis Category: Medical Plan: Patient?notes?some?GERD?and?gets?cough?when?he?discontinues?omeprazole Continues?omeprazole Has?appointment?with?GI?on?Tuesday (3) ADHD: Code(s): F90.9 - Attention-deficit hyperactivity disorder, unspecified type Category: Medical Plan: Medication?is?working?well?and?no?problems?with?this Continue?as?prescribed (4) Aspergers' syndrome: Code(s): F84.5 - Asperger's syndrome Category: Medical Plan: Stable
[2024-07-27 09:14] VITALS: BP 106/64; PULSE 70; RESP 14; TEMP 36.6; O2SAT 98; BMI 26.6
== END 2024-07-27 09:27 | disposition home or self-care (01) ==
PROVIDERS: PCP Family Medicine; Visit Provider Family Medicine
DX: Z00.00 Encounter for general adult medical examination without abnormal findings (principal); K21.9 Gastro-esophageal reflux disease without esophagitis; F90.9 Attention-deficit hyperactivity disorder, unspecified type; F84.5 Asperger's syndrome

== ENCOUNTER → 2024-07-27 08:50 | Outpatient (BNVA) | payer OTHER, MEDICAID, SELFPAY | PROVIDERS: PCP Family Medicine; Visit Provider Family Medicine | DX: Z00.00 Encounter for general adult medical examination without abnormal findings (principal); K21.9 Gastro-esophageal reflux disease without esophagitis; F90.9 Attention-deficit hyperactivity disorder, unspecified type; F84.5 Asperger's syndrome; Z79.899 Other long term (current) drug therapy | CPT/HCPCS: 96127 ==

== ENCOUNTER 2024-07-30 15:38 | Outpatient (AMB) | payer OTHER, MEDICAID, SELFPAY ==
[2024-07-30 15:50] VITALS: BP 143/80; PULSE 75; BMI 26.3
--- NOTE | 2024-07-30 15:50 | MHC.OFFVIS ---
Vital Signs 07/30/24 15:50 Height 5 ft 8 in Weight 173 lb 4.533 oz BMI 26.3 BP 143/80 H Blood Pressure Location Lt brachial Position Sitting Pulse 75 Intake Visit Reasons: GERD w/ possible complications Intake Note: New patient in office today for GERD. CC: Patient reports that he takes Omeprazole for his acid reflux and it helps him. He also reports BMs after meals. Denied other GI symptoms or concerns. Hose Suspender Cutter Required: No Accompanied by: Self / Same As Patient Allergies red dye Allergy (Verified 07/27/24 09:12) Hives Seasonal Allergies Allergy (Verified 07/27/24 09:12) Unknown HPI HPI GERD w/ possible complications: Details: 23-year-old male with past medical history of ADHD, Asperger's syndrome, asthma, GERD is here today for initial consultation. Patient has been dealing with postprandial acid reflux. His symptoms are cough after eating. Started taking omeprazole 2 years ago on enough. Doing well when he is taking the medication. Patient is accompanied here by his mom. Patient did eliminate coffee and certain food that was causing his symptoms to be worse. Patient also reports trouble swallowing solids. Feels like he has to take fluids with each bite. Patient denies any choking episodes. Denies any nausea or vomiting. Denies any abdominal pain or discomfort. Patient denies melena, hematochezia, unintentional weight loss or ribbon like stools. [facility] Surgical History History of wisdom tooth extraction Family History Mother No problems noted. Father No problems noted. Other ADHD Social History Housing: House Alcohol intake: never Patient Tobacco Use Status: Never used Tobacco e-Cigarette/Vaping Use: Never Used Second Hand Smoke Exposure: No service: No Current occupational status: employed and student Current occupational exposures/hazards: No Cognitive needs: No Hearing needs: No Vision needs: No Review of Systems Const Denies weight gain and Denies weight loss ENT Reports no additional complaints, Reports dysphagia and Denies odynophagia Card Reports no additional complaints Resp Reports cough (Postprandially) GI Denies abdominal pain, Denies belching, Denies melena, Denies bloating, Denies change in bowel habits, Reports dysphagia, Denies excessive flatus, Denies dyspepsia, Denies heartburn, Denies diarrhea, Denies loose stools, Denies nausea, Denies odynophagia and Denies vomiting Reports no additional complaints Musc Reports no additional complaints Neuro Reports no additional complaints Psych Reports no additional complaints Endo Reports no additional complaints Physical Exam Vital Signs: BMI result Body Mass Index 26.3 Const General: healthy appearing, no acute distress and well developed Nutritional Appearance: well nourished Orientation/consciousness: patient oriented x3 Resp Effort & Inspection: normal respiratory effort, able to speak in complete sentences, no tracheal deviation and symmetric chest movement Auscultation: clear to auscultation bilaterally Cardio Rate: regular rate GI Inspection: Yes normal to inspection and No distended Palpation (GI): Soft to palpation, not firm, nontender and No hepatosplenomegaly present Auscultation: normal bowel sounds General: Yes no CVA tenderness Back/Spine/Pelvis Back: no CVA tenderness Skin General skin exam: elasticity normal, turgor normal and dry skin Neuro General: patient oriented x3 Psych Appearance: grossly normal Mental Status: mental status grossly normal Assessment & Plan Assessment & Plan (1) Cough: Code(s): R05.9 - Cough, unspecified Category: Medical Qualifiers: Cough type: chronic Qualified Code(s): R05.3 - Chronic cough (2) GERD (gastroesophageal reflux disease): Code(s): K21.9 - Gastro-esophageal reflux disease without esophagitis Category: Medical Qualifiers: Esophagitis presence: esophagitis presence not specified Qualified Code(s): K21.9 - Gastro-esophageal reflux disease without esophagitis Plan Discussed with patient the importance of avoiding dietary triggers and late night snacking. Staying upright for minimum 3 hours after meals discussed with patient. Will rule out celiac, check vitamin B12, folate and vitamin-D levels. Will send patient for upper GI with barium swallow. Patient was instructed to eat slowly. Follow-up in 3 months, sooner on as needed basis. Patient might need to go for upper endoscopy pending results from upper GI study. Patient is agreeable to this plan and verbalizes understanding of instructions. He was given the opportunity to ask questions and all questions answered. Thank you for allowing me to participate in his care Orders: Orders Transglutaminase IgA Today R10.9 - Unspecified abdominal pain Vitamin B12 and Folate Today R19.7 - Diarrhea, unspecified [place] upper GI w Ba Swallow Today K21.9 - Gastro-esophageal reflux disease without esophagitis Vitamin D 25-OH (D2 and D3) Today E55.9 - Vitamin D deficiency, unspecified Coding Level of Care Code New Pt Level 3 (66936) Diagnoses Chronic cough R05.3 Cough type: chronic Gastroesophageal reflux disease, unspecified whether esophagitis present K21.9 Esophagitis presence: esophagitis presence not specified Time Spent (min) 40 Comment 30 minutes spent with patient and additional 10 minutes spent reviewing his records
== END 2024-07-30 16:23 | disposition home or self-care (01) ==
PROVIDERS: PCP Family Medicine; Visit Provider Nurse Practitioner Family
DX: R05.3 Chronic cough (principal); K21.9 Gastro-esophageal reflux disease without esophagitis
CPT/HCPCS: 99203

== ENCOUNTER → 2024-07-30 15:38 | Outpatient (BNVA) | payer OTHER, MEDICAID, SELFPAY | PROVIDERS: PCP Family Medicine; Visit Provider Nurse Practitioner Family ==

== ENCOUNTER 2024-10-11 09:53 | Outpatient (REF) | payer OTHER, MEDICAID, SELFPAY ==
--- NOTE | ~2024-10-11 | FL_ITS ---
EXAMINATION: XR FLUOROSCOPY UPPER GI WITH AIR CLINICAL INFORMATION: Reflux COMPARISON: None TECHNIQUE: Fluoroscopic air contrast upper GI examination was performed utilizing standard techniques with thin and thick barium and effervescent granules. Numerous spot images were obtained. FINDINGS: Dual and single contrast images of the esophagus demonstrate normal caliber, contour, and mucosal pattern. No evidence of stricture, mass, or ulcerations identified. Esophageal peristalsis is mildly disorganized. A very small type I hiatal hernia is present. No significant gastroesophageal reflux was seen during the course of the examination and on reflux views. Dual contrast and single contrast images of the stomach demonstrated a normal contour. The gastric rugal folds have a thickened appearance, suggestive of gastritis. No masses or ulcerations are seen. Contrast freely passed into the gastric antrum and duodenal bulb without delay. Single and air-contrast images of the duodenal bulb demonstrate no abnormality. The duodenal sweep has a normal appearance, course, and mucosal fold appearance. The imaged proximal jejunum has a normal fold pattern and caliber. FLUOROSCOPY TIME: 2 minutes 40 seconds Number of Spot Images: 7 Number of Cine: 11 DOSE AREA PRODUCT: [id number] uGy-m2 (microgray-meter squared) FL/FL upper GI w air w Ba Swallow IMPRESSION: 1. Mild esophageal dysmotility. 2. Very small type I hiatal hernia. 3. Thickened appearance of the gastric rugal folds, suggestive of gastritis. This procedure was performed by Bradley Martinez PA-C, and supervised by Dr. Guillermo Electronically signed by: Forrest Guillermo MD 10/12/2024 03:16 PM [facility]
--- OUTSIDE RECORDS SUMMARY | 2024-10-11 10:45 | XMS_ITS | Encounter Summary ---
Author Organization [facility] Address [address] [place] [id number] Phone Care Team Providers Care Cracking And Fanning Machine Operator Name Role Phone Horacio Gray MD Primary Care Provider [phone] Reason for Visit * Reason Comments Med Refill Encounter Details Date Type Department Care Team ([facility] st Contact Info) Description 03/13/2021 [facility]ill [facility] [address] [address] Horacio Gray MD [address] [place] [id number] ADHD (attention deficit hyperactivity disorder), inattentive type Social History Tobacco Use Types Packs/Day Years Used Date Smoking Tobacco: Never Smokeless Tobacco: Never Alcohol Use Standard Drinks/Week Comments No 0 (1 standard drink = 0.6 oz pur e alcohol) Hunger/Food Answer Date Recorded In the last 12 months, did y ou or your family ever eat less than you felt you should because there wasn't enough money for food? No 07/09/2020 Stable Housing Answer Date Recorded Are you worried that in the next 2 months you may not have stable housing? No 07/09/2020 Transportation Concerns Answer Date Rec orded In the last 12 months, have you or your family ever had to go without healthcare because you didn't have a way to get there? No 07/09/2020 Hazards in Home Answer Date Recorded Think about the place you li ve. Do you have problems with any of the following? Pests (mice or roaches), mold, no/not working smoke detectors, water leaks, no window guards. No 2019 Financing Utilities Answer Date Recorde d In the last 12 months, has t he electric, gas, oil, or water company threatened to shut off your services in your home? No 07/09/2020 Safety at Home Answer Date Recorded Are you or your family worried about feeling saf e in your home? No 07/09/2020 Outside Support Answer Date Recorded Do you feel that you need mo re support from other people or programs to help you care for yourself or your family? No 07/09/2020 Understanding Health Concerns Answer Da te Recorded Do you need help understandi ng your or your child's healthcare needs (diagnosis, medications, plan, etc.)? No 07/09/2020 Financing Health Concerns Answer Date R ecorded In the last 12 months, was t here a time when your child needed to see a doctor or get medications or supplies but could not because of cost? No 07/09/2020 Missing School or Work Answer Date Carmine rded Did you or your child miss s chool or work because of a health problem that could have been avoided? No 07/09/2020 Sex and Gender Information Value Date Recorded Sex Assigned at Not on file Legal Sex Male 6:28 PM EDT Gender Identity Not on file Sexual Orientation Not on file documented as of this encounter Plan of Treatment Not on file documented as of this encounter Visit Diagnoses Diagnosis ADHD (attention deficit hyperactivity disorder), inattentive type documented in this encounter Care Teams Cracking And Fanning Machine Operator Relationship Specialty Start Date End Date Horacio Gray MD [address] [place] [place] [address] PCP - General 12/28/17 05/17/24 documented as of this encounter
--- OUTSIDE RECORDS SUMMARY | 2024-10-11 10:45 | XMS_ITS | Clinical Summary ---
Author Organization [facility] Address [address] [place], [place] [id number] Phone Care Team Providers Care Cardiac Exercise Specialist Name Role Phone Unavailable Primary Care Provider Unavailabl e Allergies Active Allergy Reactions Criticality Noted Date Comments Environmental 04/04/2018 seasonal Red Dye #40 (Allura Red) Medications budesonide 32 MCG/ACT nasal spray INSTILL 2 SPRAY INTO EACH NOSTRIL ONCE DAILY 2 0 Active cloNIDine 0.1 MG tabletIndications: ADHD (attention deficit hyperactivity disorder), inattentive type Take 1 tablet (0.1 mg) daily 90 tablet 1 Active dexmethylphenidate XR (Focalin XR) 25 MG 24 hr capsuleIndications :ADHD (attention deficit hyperactivity disorder), inattentive type Take 1 capsule (25 mg total) by mouth daily. 30 capsule 1 Active Active Problems Problem Noted Date Diagnosed Date ADHD (attention deficit hype ractivity disorder), inattentive type 10/04/2017 Assessment & Plan (07/09/2020 3:50 PM EST): Appears to be doing well without Focalin XR. Assessment & Plan (12/12/2019 4:26 PM EDT): Doing well with current medication dose. Does not need any RX's today. Okay to refill x 6 months. Assessment & Plan (07/04/2019 2:36 PM EST): Doing well with current medication dose. Below script sent to pharmacy. Okay to refill x 6 months. Assessment & Plan (11/29/2018 4:33 PM EDT): Doing well with current medication dose. Below scripts sent to pharmacy. Okay to refill x 6 months. Assessment & Plan (04/04/2018 12:36 PM EDT): Mom has had him off Focalin XR and Guanfacine for the summer. Will use this opportunity to see if we can get rid of the Guanfacine. Will give refill for Focalin XR to start for school year. Mom and Jude will let me know how he dose. Also discussed his sleep. I prefer keeping him at 0.1 mg of clonidine Autism 10/04/2017 Assessment & Plan (07/09/2020 3:51 PM EST): Continue with [facility] supports. Occasional clonidine for sleep still but encouraged him to try stopping as he seems to do okay on the weekends without. Assessment & Plan (04/04/2018 12:36 PM EDT): Continue with [facility] supports Allergic rhinitis due to [place] house dust shira e 09/01/2016 Assessment & Plan (07/09/2020 3:39 PM EST): Doing well Resolved Problems Problem Noted Date Diagnosed Date Resolved Date Acne vulgaris 09/16/2015 04/04/2018 Immunizations Immunization Administration Dates Next Due DTaP 02/01/2005, 1,07/05/2000,05/04,03/01/2000 HPV, Quadrivalent 09/09/2014,05/08/2014,03/06/20 14 Hep A, ped/adol 04/04/2018,03/30/2017 Hep B, ped/adol 10/04/2000,03/01/2000,1999 Hib (PRP-T) 03/31/2001, 0,05/04/2000,03/01 IPV 02/01/2005, 1,05/04/2000,03/01 Influenza 07/05/2007 Influenza, injectable, quadrivalent 05/23,06/03/2012,05/22/2011,05/20,05/12/2009,06/22/2008 Influenza, injectable, quadr ivalent, preservative free 05/15/2020,04/20/2019,04/21/2018,05/28,05/17/2015,05/08/2014,05/23/2013 MMR 04/23/2004,01/17/2001 Meningococcal Conj (Menactra) MCV4P 03/24/2016,0 02/25/2011 Pneumococcal Conjugate 03/31/2001,1999,05/04/2000,03/01 Tdap 02/25/2011 Unknown Vaccine 11/07/2017 Varicella 02/14/2008,01/17/2001 Family History Medical History Relation Name Comments No Known Problems Father Prostate cancer Maternal Grandfather Heart disease Maternal Grandmother Thyroid disease Mother Lung cancer Paternal Grandfather Relation Name Status Comments Brother Dio Alive Father Alive Maternal Grandfather Maternal Grandmother Mother Alive Paternal Grandfather Alive Paternal Grandmother Alive Sister Tonya Alive Social History Tobacco Use Types Packs/Day Years [...] on file Sexual Orientation Not on file Last Filed Vital Signs Vital Sign Reading Time Taken Comments Blood Pressure 118/76 07/09/2020 3:16 PM EST Pulse 75 06/28/2016 12:00 AM EST Temperature 37.1 ??C (98.8 ??F) 04/04/2018 11:07 AM E DT Respiratory Rate - - Oxygen Saturation 99% 06/28/2016 12:00 AM EST Inhaled Oxygen Concentration - - Weight 68.9 kg (152 lb) 07/09/2020 3:16 PM EST Height 171.5 cm (5' 7.5 ) 07/09/2020 3:16 PM EST Body Mass Index 23.46 07/09/2020 3:16 PM EST Plan of Treatment Health Maintenance Due Date Last Done Comments DTaP,Tdap,and Td Vaccines (7 - Td or Tdap) 02/25/2021 02/25/2011, 02/01/2005, 03/31/2001, Additional history exists Influenza Vaccines (#1) 2024 06/01/20, 05/15/2020, 04/20/2019, Additional history exists COVID-19 Vaccine ( season) 2024 07/30/2021, 12/05/2020, 11/14/2020 Hepatitis B Vaccines Completed 10/04/2000, 03/01/2000, 1999 HIB Vaccines Completed 03/31/2001, 06/22, 05/04/2000, Additional history exists Pneumococcal Vaccine Completed 03/31/2001, 07/05/2000, 05/04/2000, Additional history exists MMR Vaccines Completed 04/23/2004, 01/17/2001 IPV Vaccines Completed 02/01/2005, 09/22, 05/04/2000, Additional history exists Varicella Vaccines Completed 02/14/2008, 01/17/2001 HPV Vaccines Completed 09/09/2014, 04/22, 03/06/2014 Meningococcal Vaccine Completed 03/24/2016, 011 Hepatitis A Vaccines Completed 04/04/2018, 03/30/20 17 Men B Vaccine Aged Out No longer elig ible based on patient's age to complete this topic Insurance [facility] NON PCC
--- OUTSIDE RECORDS SUMMARY | 2024-10-11 10:45 | XMS_ITS | Encounter Summary ---
Author Organization [facility] Address [address] [place] [address] Phone Care Team Providers Care Store Administrative Assistant Name Role Phone Horacio Gray MD Primary Care Provider [phone] Encounter Details Date Type Department Care Team (Late st Contact Info) Description 01/08/2018 Conversion Encounter [facility] [address] [place] [address] Horacio Gray MD [address] [place] [address] Social History Tobacco Use Types Packs/Day Years Used Date Smoking Tobacco: Never Assessed Sex and Gender Information Value Date Recorded Sex Assigned at Not on file Legal Sex Male 6:28 PM EDT Gender Identity Not on file Sexual Orientation Not on file documented as of this encounter Plan of Treatment Not on file documented as of this encounter Visit Diagnoses Not on filedocumented in this encounter Care Teams Store Administrative Assistant Relationship Specialty Start Date End Date Horacio Gray MD [address] [place] [address] PCP - General 12/28/17 05/17/24 documented as of this encounter
--- OUTSIDE RECORDS SUMMARY | 2024-10-11 10:45 | XMS_ITS | Encounter Summary ---
Author Organization [facility] Address [address] [place] [address] Phone Care Team Providers Care Self Pay Collector Name Role Phone Horacio Gray MD Primary Care Provider [phone] Encounter Details Date Type Department Care Team (Late st Contact Info) Description 09/25/2009 Documentation [facility] [place] Family Medicine [address] [place], [place] [id number] Family Medicine, Physician [address] [place], [place] [address] Social History Tobacco Use Types Packs/Day Years [...] on filedocumented in this encounter Care Teams Self Pay Collector Relationship Specialty Start Date End Date Horacio Gray MD [address] [place] [address] PCP - General 12/28/17 05/17/24 documented as of this encounter
--- OUTSIDE RECORDS SUMMARY | 2024-10-11 10:45 | XMS_ITS | Encounter Summary ---
Author Organization [facility] Address [address] [place] [address] Phone Care Team Providers Care Social Media Marketing Analyst Name Role Phone Horacio Gray MD Primary Care Provider [phone] Encounter Details Date Type Department Care Team (Late st Contact Info) Description 08/27/2009 Documentation [facility] [place] Family Medicine [address] [place], [place] [id number] Family Medicine, Physician [address] [place], [place] [address] Social History Tobacco Use Types Packs/Day Years [...] on filedocumented in this encounter Care Teams Social Media Marketing Analyst Relationship Specialty Start Date End Date Horacio Gray MD [address] [place] [address] PCP - General 12/28/17 05/17/24 documented as of this encounter
== END 2024-10-11 09:54 | disposition home or self-care (01) ==
LOC: HO.XRAY 09:53
PROVIDERS: PCP Family Medicine; Visit Provider Nurse Practitioner Family
DX: K21.9 Gastro-esophageal reflux disease without esophagitis (principal)
CPT/HCPCS: 74246

== ENCOUNTER → 2024-10-11 09:55 | Outpatient (BNV) | payer OTHER, MEDICAID, SELFPAY | PROVIDERS: PCP Family Medicine; Visit Provider Physician Assistant Surgical | DX: K21.9 Gastro-esophageal reflux disease without esophagitis (principal) | CPT/HCPCS: 74246; 74248 ==

== ENCOUNTER 2024-10-26 08:54 | Outpatient (REF) | payer OTHER, MEDICAID, SELFPAY ==
--- OUTSIDE RECORDS SUMMARY | 2024-10-26 09:31 | XMS_ITS | Clinical Summary ---
Author Organization [facility] Address [address] [place], [place] [address] Phone Care Team Providers Care Street Vendor Name Role Phone Unavailable Primary Care Provider [...] Plan (07/09/2020 3:51 PM EST): Continue with [facility] supports. Occasional clonidine for sleep still but encouraged him to try stopping as he seems to do okay on the weekends without. Assessment & Plan (04/04/2018 12:36 PM EDT): Continue with [facility] supports Allergic rhinitis due to [place] house dust shira e 09/01/2016 Assessment & [...] age to complete this topic Insurance [facility] NON PCC
--- OUTSIDE RECORDS SUMMARY | 2024-10-26 09:31 | XMS_ITS | Encounter Summary ---
Author Organization [facility] Address [address] [place] [address] Phone Care Team Providers Care Cardiograph Operator Name Role Phone Horacio Gray MD Primary Care Provider [phone] Encounter Details Date Type Department Care Team (Late st Contact Info) Description 08/27/2009 Documentation [facility] [place] Family Medicine [address] [place], [place] [phone] Family Medicine, Physician [address] [place], [place] [address] Social History Tobacco Use Types Packs/Day Years [...] on filedocumented in this encounter Care Teams Cardiograph Operator Relationship Specialty Start Date End Date Horacio Gray MD [address] [place] [address] PCP - General 12/28/17 05/17/24 documented as of this encounter
--- OUTSIDE RECORDS SUMMARY | 2024-10-26 09:31 | XMS_ITS | Encounter Summary ---
Author Organization [facility] Address [address] [place] [address] Phone Care Team Providers Care Health Type Technician Name Role Phone Horacio Gray MD Primary Care Provider [phone] Reason for Visit * Reason Comments Med Refill Encounter Details Date Type Department Care Team ([facility] st Contact Info) Description 03/13/2021 [facility]ill [facility] [address] [address] Horacio Gray MD [address] [place] [address] ADHD (attention deficit hyperactivity disorder), inattentive type [...] type documented in this encounter Care Teams Health Type Technician Relationship Specialty Start Date End Date Horacio Gray MD [address] [place] [address] PCP - General 12/28/17 05/17/24 documented as of this encounter
--- OUTSIDE RECORDS SUMMARY | 2024-10-26 09:31 | XMS_ITS | Encounter Summary ---
Author Organization [facility] Address [address] [place] [address] Phone Care Team Providers Care Senior Network Administrator Name Role Phone Horacio Gray MD Primary Care Provider [phone] Encounter Details Date Type Department Care Team (Late st Contact Info) Description 09/25/2009 Documentation [facility] [place] Family Medicine [address] [place], [place] [phone] Family Medicine, Physician [address] [place], [place] [address] Social History Tobacco Use Types Packs/Day Years [...] on filedocumented in this encounter Care Teams Senior Network Administrator Relationship Specialty Start Date End Date Hroacio Gray MD [address] [place] [address] PCP - General 12/28/17 05/17/24 documented as of this encounter
--- OUTSIDE RECORDS SUMMARY | 2024-10-26 09:31 | XMS_ITS | Encounter Summary ---
Author Organization [facility] Address [address] [place] [address] Phone Care Team Providers Care Application Security Consultant Name Role Phone Horacio Gray MD Primary Care Provider [phone] Encounter Details Date Type Department Care Team (Late st Contact Info) Description 01/08/2018 Conversion Encounter [facility] [address] [place] [address] Horacio Gray MD [address] [place] [address] Social History Tobacco Use Types Packs/Day Years [...] on filedocumented in this encounter Care Teams Application Security Consultant Relationship Specialty Start Date End Date Horacio Gray MD [address] [place] [address] PCP - General 12/28/17 05/17/24 documented as of this encounter
[2024-10-26 12:58] LABS: Folate 5.1 ng/mL (> or = 4.0); Vitamin B12 405 pg/mL (200-900)
[2024-10-29 19:04] LABS: Transglutaminase IgA <1.0 U/mL
[2024-11-01 23:24] LABS: Vitamin D 25-OH, D2 <4 ng/mL; Vitamin D 25-OH, D3 30 ng/mL; Vitamin D 25-OH, Total 30 ng/mL (30-100)
== END 2024-10-26 08:55 | disposition home or self-care (01) ==
LOC: HO.WFDLDS 08:54
PROVIDERS: Visit Provider Nurse Practitioner Family
DX: R10.9 Unspecified abdominal pain (principal); R19.7 Diarrhea, unspecified; E55.9 Vitamin D deficiency, unspecified
CPT/HCPCS: 36415; 82306; 82607; 82746; 86364

== ENCOUNTER 2024-10-30 15:27 | Outpatient (AMB) | payer OTHER, MEDICAID, SELFPAY ==
--- NOTE | 2024-10-30 15:54 | MHC.OFFVIS ---
Vital Signs 10/30/24 15:55 Height 5 ft 8 in Weight 175 lb 7.807 oz BMI 26.7 BP 120/84 Blood Pressure Location Rt brachial Position Sitting Pulse 70 Pulse Source Pulse Oximeter Pulse Oximetry (%) 98 Oxygen Delivery Method Room Air Intake Visit Reasons: 3 mos FUV. Intake Note: ESTABLISHED PATIENT for GERD mgmt. Reminded of labs 10/25/24. Imaging done. Chief Complaint; C/O reflux w/o any sign of change in presentation since last visit. Pt confirms that he is still taking omeprazole as instructed. No additional concerns or sx to report at this time. Heavy Rail Train Operator Required: No Accompanied by: Self / Same As Patient Allergies red dye Allergy (Verified 10/30/24 15:54) Hives Seasonal Allergies Allergy (Verified 10/30/24 15:54) Unknown HPI HPI 3 mos FUV.: Details: LAST VISIT: Cough GERD (gastroesophageal reflux disease) Plan Discussed with patient the importance of avoiding dietary triggers and late night snacking. Staying upright for minimum 3 hours after meals discussed with patient. Will rule out celiac, check vitamin B12, folate and vitamin-D levels. Will send patient for upper GI with barium swallow. Patient was instructed to eat slowly. Follow-up in 3 months, sooner on as needed basis. Patient might need to go for upper endoscopy pending results from upper GI study. Patient is agreeable to this plan and verbalizes understanding of instructions. He was given the opportunity to ask questions and all questions answered. ? Thank you for allowing me to participate in his care Orders Orders Transglutaminase IgA Today R10.9 Vitamin B12 and Folate Today R19.7 FL upper GI w Ba Swallow Today K21.9 Vitamin D 25-OH (D2 and D3) Today E55.9 TODAY'S VISIT: Patient is here today for follow-up and to discuss lab results. Patient reports that he has been feeling significantly better. Occasional acid reflux depending on what he eats. Occasional epigastric pain. Depending on what he eats he will acid reflux and occasional epigastric pain. Patient denies any nausea or vomiting. Patient is trying to avoid dietary triggers. Patient is trying to eat healthy. Occasionally fast food causing him having those symptoms. Admits to eating late at night occasionally. Lab work and upper GI series with barium study and discussed with patient. Patient currently is taking omeprazole and for the most part feels like it is working [facility] Surgical History History of wisdom tooth extraction Family History Mother No problems noted. Father No problems noted. Other ADHD Social History Housing: House Alcohol intake: never Patient Tobacco Use Status: Never used Tobacco e-Cigarette/Vaping Use: Never Used Second Hand Smoke Exposure: No service: No Current occupational status: employed and student Current occupational exposures/hazards: No Cognitive needs: No Hearing needs: No Vision needs: No Review of Systems Const Denies weight gain and Denies weight loss ENT Reports no additional complaints, Denies dysphagia and Denies odynophagia Card Reports no additional complaints Resp Reports no additional complaints GI Reports abdominal pain (Occasional epigastric), Denies belching, Denies melena, Denies bloating, Denies change in bowel habits, Denies dysphagia, Denies excessive flatus, Denies dyspepsia, Reports heartburn (Occasional, improved), Denies diarrhea, Denies loose stools, Denies nausea, Denies odynophagia and Denies vomiting Reports no additional complaints Musc Reports no additional complaints Neuro Reports no additional complaints Psych Reports no additional complaints Endo Reports no additional complaints Physical Exam Vital Signs: Last Vital Signs Pulse 70 10/30/24 15:55 BP 120/84 10/30/24 15:55 Pulse Ox 98 10/30/24 15:55 Oxygen Delivery Method Room Air 10/30/24 15:55 BMI result Body Mass Index 26.7 Const General: healthy appearing, no acute distress and well developed Nutritional Appearance: well nourished Orientation/consciousness: patient oriented x3 Resp Effort & Inspection: normal respiratory effort, able to speak in complete sentences, no tracheal deviation and symmetric chest movement Auscultation: clear to auscultation bilaterally Cardio Rate: regular rate GI Inspection: Yes normal to inspection and No distended Palpation (GI): Soft to palpation, not firm, nontender and No hepatosplenomegaly present Auscultation: normal bowel sounds General: Yes no CVA tenderness Back/Spine/Pelvis Back: no CVA tenderness Skin General skin exam: elasticity normal, turgor normal and dry skin Neuro General: patient oriented x3 Psych Appearance: grossly normal Mental Status: mental status grossly normal Results Reviewed Results Reviewed: UPPER GI WITH BARIUM SWALLOW 10/11/2024 IMPRESSION: 1. Mild esophageal dysmotility. 2. Very small type I hiatal hernia. 3. Thickened appearance of the gastric rugal folds, suggestive of gastritis. Laboratory Tests 10/26/24 08:55 Vitamin B12 405 Folate 5.1 Tiss Transglutamin IgA <1.0 Assessment & Plan Assessment & Plan (1) Cough: Code(s): R05.9 - Cough, unspecified Category: Medical Qualifiers: Cough type: chronic Qualified Code(s): R05.3 - Chronic cough (2) GERD (gastroesophageal reflux disease): Code(s): K21.9 - Gastro-esophageal reflux disease without esophagitis Category: Medical Qualifiers: Esophagitis presence: esophagitis presence not specified Qualified Code(s): K21.9 - Gastro-esophageal reflux disease without esophagitis Plan Continue omeprazole. Avoid dietary triggers and late night snacking. Staying upright for minimum 3 hours after meals discussed with patient. Patient was encouraged to change his diet and continue avoiding food that is spicy. He will call our office if he will have any additional symptoms. See on as-needed basis. Patient is agreeable to this plan and verbalizes understanding of instructions. He was given the opportunity to ask questions and all questions answered. Thank you for allowing me to participate in his care Coding Level of Care Code Est Pt Level 3 (30171) Diagnoses Chronic cough R05.3 Cough type: chronic Gastroesophageal reflux disease, unspecified whether esophagitis present K21.9 Esophagitis presence: esophagitis presence not specified Time Spent (min) 25 Comment 15 minutes spent with patient and additional 10 minutes spent reviewing his records
[2024-10-30 15:55] VITALS: BP 120/84; PULSE 70; O2SAT 98; BMI 26.7
--- OUTSIDE RECORDS SUMMARY | 2024-10-30 18:42 | XMS_ITS | Encounter Summary ---
Author Organization [facility] Address [address] [place] [address] Phone Care Team Providers Care Vacuum Cleaner Repairer Name Role Phone Horacio Gray MD Primary Care Provider [phone] Encounter Details Date Type Department Care Team (Late st Contact Info) Description 09/25/2009 Documentation [facility] [place] Family Medicine [address] [place], [place] [phone] Family Medicine, Physician [address] [place], [place] [address] Social History Tobacco Use Types Packs/Day Years [...] on filedocumented in this encounter Care Teams Vacuum Cleaner Repairer Relationship Specialty Start Date End Date Horacio Gray MD [address] [place] [address] PCP - General 12/28/17 05/17/24 documented as of this encounter
--- OUTSIDE RECORDS SUMMARY | 2024-10-30 18:42 | XMS_ITS | Clinical Summary ---
Author Organization [facility] Address [address] [place], [place] [phone] Phone Care Team Providers Care Powder Mill Operator Name Role Phone Unavailable Primary Care Provider [...] Plan (07/09/2020 3:51 PM EST): Continue with [facility] supports. Occasional clonidine for sleep still but encouraged him to try stopping as he seems to do okay on the weekends without. Assessment & Plan (04/04/2018 12:36 PM EDT): Continue with [facility] supports Allergic rhinitis due to [place] house dust shira e 09/01/2016 Assessment & [...] age to complete this topic Insurance [facility] [facility] NON PCC
--- OUTSIDE RECORDS SUMMARY | 2024-10-30 18:42 | XMS_ITS | Encounter Summary ---
Author Organization [facility] Address [address] [place] [address] Phone Care Team Providers Care Custom Decorating Consultant Name Role Phone Horacio Gray MD Primary Care Provider [phone] Encounter Details Date Type Department Care Team (Late st Contact Info) Description 01/08/2018 Conversion Encounter [facility] [address] [place] [address] Horacio Gray MD [address] [place] [address] Social History Tobacco Use Types Packs/Day Years [...] on filedocumented in this encounter Care Teams Custom Decorating Consultant Relationship Specialty Start Date End Date Horacio Gray MD [address] [place] [address] PCP - General 12/28/17 05/17/24 documented as of this encounter
--- OUTSIDE RECORDS SUMMARY | 2024-10-30 18:42 | XMS_ITS | Encounter Summary ---
Author Organization [facility] Address [address] [place] [address] Phone Care Team Providers Care Heat Sealing Machine Operator Name Role Phone Horacio Gray MD Primary Care Provider [phone] Reason for Visit * Reason Comments Med Refill Encounter Details Date Type Department Care Team ([facility] st Contact Info) Description 03/13/2021 [facility]ill [facility] [address] [address] Horacio Gray MD [address] [place] [address] ADHD (attention deficit hyperactivity disorder), inattentive type [...] type documented in this encounter Care Teams Heat Sealing Machine Operator Relationship Specialty Start Date End Date Horacio Gray MD [address] [place] [address] PCP - General 12/28/17 05/17/24 documented as of this encounter
--- OUTSIDE RECORDS SUMMARY | 2024-10-30 18:43 | XMS_ITS | Encounter Summary ---
Author Organization [facility] Address [address] [place] [address] Phone Care Team Providers Care Acid Crane Operator Name Role Phone Horacio Gray MD Primary Care Provider [phone] Encounter Details Date Type Department Care Team (Late st Contact Info) Description 08/27/2009 Documentation [facility] [place] Family Medicine [address] [place], [place] [id number] Family Medicine, Physician [address] [place], [place] [address] Social History Tobacco Use Types Packs/Day Years [...] on filedocumented in this encounter Care Teams Acid Crane Operator Relationship Specialty Start Date End Date Horacio Gray MD [address] [place] [address] PCP - General 12/28/17 05/17/24 documented as of this encounter
== END 2024-10-30 17:19 ==
LOC: HO.HGI 15:27
PROVIDERS: PCP Family Medicine; Visit Provider Nurse Practitioner Family
DX: R05.3 Chronic cough (principal); K21.9 Gastro-esophageal reflux disease without esophagitis
CPT/HCPCS: 99213

== ENCOUNTER 2024-11-29 09:27 | Outpatient (AMB) | payer OTHER, MEDICAID, SELFPAY ==
--- NOTE | 2024-11-29 09:34 | A.OFFPC_ITS ---
Vital Signs 11/29/24 09:36 Height 5 ft 8 in Weight 174 lb 8 oz BMI 26.5 BP 120/66 Blood Pressure Location Lt brachial Position Sitting Respiration 14 Pulse 90 Pulse Source Pulse Oximeter Temp 97.9 F Temp Source Oral Pulse Oximetry (%) 98 Oxygen Delivery Method Room Air Intake Visit Reasons: /u ADHD Director Of Business Development Required: No Allergies red dye Allergy (Verified 11/29/24 09:34) Hives Seasonal Allergies Allergy (Verified 11/29/24 09:34) Unknown Medication List - Last Reconciled 11/29/24 by Lyndon Martínez MD albuterol sulfate 90 mcg/actuation 2 inhalations inhalation Q6H PRN budesonide 180 mcg/actuation (Pulmicort Flexhaler) 2 inhalations inhalation BID budesonide 32 mcg/actuation intranasal clonidine HCl 0.1 mg PO BEDTIME 30 days levocetirizine 5 mg PO DAILY omeprazole 20 mg PO DAILY Tobacco use date assessed: 07/27/24 Dental Screening Dental Screen Date: 07/27/24 HPI f/u ADHD HPI Details 23 y/o male presents to / ADHD. He is was on dexmethylphenidate ER 25mg once a day in the morning. No recent refills. Denies any issues with appetite, anxiety, falling asleep. Doing well otherwise. [facility] History History of wisdom tooth extraction Family History Mother No problems noted. Father No problems noted. Other ADHD Social History Housing: House Alcohol intake: never Patient Tobacco Use Status: Never used Tobacco e-Cigarette/Vaping Use: Never Used Second Hand Smoke Exposure: No service: No Current occupational status: employed and student Current occupational exposures/hazards: No Cognitive needs: No Hearing needs: No Vision needs: No Questionnaire PHQ-9 Over the last 2 weeks, how often have you been bothered by any of the following problems? 1. Little interest or pleasure in doing things: not at all 2. Feeling down, depressed, or hopeless: not at all 4. Feeling tired or having little energy: not at all 5. Poor appetite or overeating: not at all 6. Feeling bad about yourself - or that you are a failure or have let yourself or your family down: not at all 7. Trouble concentrating on things, such as reading the newspaper or watching television: not at all 8. Moving or speaking so slowly that other people could have noticed. Or the opposite - being so fidgety or restless that you have been moving around a lot more than usual: not at all 9. Thoughts that you would be better off or of hurting yourself in some way: not at all Source: Developed by Drs. Horacio Soto, Yaa Figueroa, Scout Reyez and colleagues, with an educational john from [employer]. Thrive Questionnaire Date Thrive assessed: 11/22/24 I am a: Patient What is your living situation today?: I have a steady place to live Within the past 12 months, did the food you bought not last and you didn't have the money to get more?: Never true Within the past 12 months, did you worry whether your food would run out before you got money to buy more?: Never true Do you have trouble paying for medicines?: No Do you have trouble getting transportation to medical appointments?: No Do you have trouble paying your heating and electricity bill?: No Do you have trouble taking care of your child, family member or friend?: No Do you have trouble with day-to-day activities such as bathing, preparing meals, shopping, managing finances, etc.?: No Are you currently unemployed and looking for a job?: No Are you interested in more education?: No Please select the resources that you would like help with: None Currently or been in a relationship where the following occur: No concerns reported and I choose not to answer THRIVE Score: 0 AUDIT C Alcohol Use Questionnaire (AUDIT-C) 1. How often do you have a drink containing alcohol?: Never 3. How often do you have six or more drinks on one occasion?: Never Total Score: 0 MARGE-7 AMB Questionnaire MARGE-7 Date MARGE - 7 assessed: 07/27/24 Feeling nervous, anxious, or on edge: 0 = Not at all Not being able to stop or control worryin = Not at all Worrying too much about different things: 0 = Not at all Trouble relaxin = Not at all Being so restless that it is hard to sit still: 0 = Not at all Becoming easily annoyed or irritable: 0 = Not at all Feeling afraid as if something awful might happen: 0 = Not at all Total MARGE-7 score (0-4 normal; 5-9 mild; 10-14 moderate; 15-21 severe): 0 Source: Developed by Drs. Horacio Soto, Yaa Figueroa, Scout Reyez and colleagues, with an educational john from [employer]. Review of Systems Const Denies chills, Denies fatigue, Denies fever(s), Denies headache(s) and Denies weakness ENT Denies dizziness and Denies headache(s) Card Denies dyspnea Resp Denies cough, Denies dyspnea, Denies wheezing and Denies other (shortness of breath) Musc Denies numbness and Denies tingling Neuro Denies dizziness, Denies headache(s), Denies numbness, Denies tingling and Denies weakness Psych Denies anxiety and Denies depression Endo Denies fatigue Aller/Immun Denies wheezing Physical exam (Primary Care) Vital Signs: Last Vital Signs Temp 97.9 F 11/29/24 09:36 Pulse 90 11/29/24 09:36 Resp 14 11/29/24 09:36 BP 120/66 11/29/24 09:36 Pulse Ox 98 11/29/24 09:36 Oxygen Delivery Method Room Air 11/29/24 09:36 BMI result Body Mass Index 26.5 Tobacco/Smoking Status: Tobacco use Status Tobacco use date assessed 07/27/24 11/29/24 09:41 Patient Tobacco Use Status Never used Tobacco 11/29/24 09:41 e-Cigarette/Vaping Use Never Used 11/29/24 09:41 Thrive Assessment: Date of Thrive Assessment Date Thrive assessed 11/22/24 11/29/24 09:41 Currently or been in a relationship where the following occur: No concerns reported and I choose not to answer Const General: well developed; No acute distress Nutritional Appearance: well nourished Orientation/consciousness: patient oriented x3 HENMT Head: Yes normocephalic and Yes atraumatic Eyes General: appearance normal, both eyes and all related structures Pupils: Equal, round and reactive pupils present EOM: EOMs intact bilaterally Resp Effort & Inspection: normal respiratory effort Auscultation: clear to auscultation bilaterally Cardio Rate: regular rate Rhythm: regular rhythm Heart sounds: S1 normal heart sound present, S2 normal heart sound present, no gallops, no murmurs and no rubs Neuro General: patient oriented x3 and gait normal Cranial nerves: Yes Equal, round and reactive pupils present Psych Affect: normal affect Coding Level of Care Code Est Pt Level 3 (13477) Diagnoses ADHD F90.9 Assessment & Plan Assessment & Plan (1) ADHD: Code(s): F90.9 - Attention-deficit hyperactivity disorder, unspecified type Category: Medical Plan: No?recent?prescriptions?for?dexmethylphenidate. Does?have?clonidine No?adverse?effects?from?his?medication?regimen Continue?current?medication?regimen Can?consider?resuming?dexmethylphenidate?if?needed. Medications: Discontinued dexmethylphenidate ER Discontinued Reason: Patient no longer taking 25 mg PO QAM 30 days 30 caps 0RF
[2024-11-29 09:36] VITALS: BP 120/66; PULSE 90; RESP 14; TEMP 36.6; O2SAT 98; BMI 26.5
--- OUTSIDE RECORDS SUMMARY | 2024-11-29 10:21 | XMS_ITS | Clinical Summary ---
Author Organization [facility] Address [address] [place], [place] [phone] Phone Care Team Providers Care Inside Sales Assistant Name Role Phone Unavailable Primary Care Provider [...] Plan (07/09/2020 3:51 PM EST): Continue with [facility] supports. Occasional clonidine for sleep still but encouraged him to try stopping as he seems to do okay on the weekends without. Assessment & Plan (04/04/2018 12:36 PM EDT): Continue with [facility] supports Allergic rhinitis due to [place] house dust shira e 09/01/2016 Assessment & [...] age to complete this topic Insurance [facility] NON PCC
--- OUTSIDE RECORDS SUMMARY | 2024-11-29 10:21 | XMS_ITS | Encounter Summary ---
Author Organization [facility] Address [address] [place] [address] Phone Care Team Providers Care Leather Finisher Name Role Phone Horacio Gray MD Primary Care Provider [phone] Encounter Details Date Type Department Care Team (Late st Contact Info) Description 08/27/2009 Document[place] [facility] [place] [address] [place], [place] [id number] Family Medicine, Physician [address] [place], [place] [id number] Social History Tobacco Use Types Packs/Day Years [...] on filedocumented in this encounter Care Teams Leather Finisher Relationship Specialty Start Date End Date Horacio Gray MD [address] [place] [address] PCP - General 12/28/17 05/17/24 documented as of this encounter
--- OUTSIDE RECORDS SUMMARY | 2024-11-29 10:21 | XMS_ITS | Encounter Summary ---
Author Organization [facility] Address [address] [place] [address] Phone Care Team Providers Care Vp Emerging Media Name Role Phone Horacio Gray MD Primary Care Provider [phone] Encounter Details Date Type Department Care Team (Late st Contact Info) Description 09/25/2009 [place] [facility] [place] [address] [place], [place] [phone] Family Medicine, Physician [address] [place], [place] [address] Social History Tobacco Use Types Packs/Day Years [...] on filedocumented in this encounter Care Teams Vp Emerging Media Relationship Specialty Start Date End Date Horacio Gray MD [address] [place] [address] PCP - General 12/28/17 05/17/24 documented as of this encounter
--- OUTSIDE RECORDS SUMMARY | 2024-11-29 10:21 | XMS_ITS | Encounter Summary ---
Author Organization [facility] Address [address] [place] [address] Phone Care Team Providers Care Wastewater Treatment Plant Instructor Name Role Phone Horacio Gray MD Primary Care Provider [phone] Encounter Details Date Type Department Care Team (Late st Contact Info) Description 01/08/2018 Conversion [facility]counter [facility] [address] [place] [address] Horacio Gray MD [address] [place] [address] Social History Tobacco Use Types Packs/Day Years [...] on filedocumented in this encounter Care Teams Wastewater Treatment Plant Instructor Relationship Specialty Start Date End Date Horacio Gray MD [address] [place] [address] PCP - General 12/28/17 05/17/24 documented as of this encounter
--- OUTSIDE RECORDS SUMMARY | 2024-11-29 10:21 | XMS_ITS | Encounter Summary ---
Author Organization [facility] Address [address] [place] [address] Phone Care Team Providers Care Charge Nurse Name Role Phone Horacio Gary MD Primary Care Provider [phone] Reason for Visit * Reason Comments Med Refill Encounter Details Date Type Department Care Team ([facility] st Contact Info) Description 03/13/2021 [facility]ill [facility] [address] [address] Horacio Gray MD [address] [place] [id number] ADHD (attention deficit hyperactivity disorder), inattentive type [...] type documented in this encounter Care Teams Charge Nurse Relationship Specialty Start Date End Date Horacio Gray MD [address] [facility] [place] [address] PCP - General 12/28/17 05/17/24 documented as of this encounter
== END 2024-11-29 10:07 | disposition home or self-care (01) ==
LOC: HO.HMCFM 09:27
PROVIDERS: PCP Family Medicine; Visit Provider Family Medicine
DX: F90.9 Attention-deficit hyperactivity disorder, unspecified type (principal)

== ENCOUNTER → 2024-11-29 09:27 | Outpatient (BNVA) | payer OTHER, MEDICAID, SELFPAY | PROVIDERS: PCP Family Medicine; Visit Provider Family Medicine ==

== ENCOUNTER 2025-05-07 11:07 | Outpatient (AMB) | payer OTHER, MEDICAID, SELFPAY ==
--- NOTE | 2025-05-07 11:21 | A.OFFPC_ITS ---
Vital Signs 05/07/25 11:24 Height 5 ft 8 in Weight 166 lb 8 oz BMI 25.3 BP 110/72 Blood Pressure Location Rt brachial Position Sitting Respiration 14 Pulse 92 Pulse Source Pulse Oximeter Temp 97.9 F Temp Source Temporal Artery Scan Pulse Oximetry (%) 98 Oxygen Delivery Method Room Air Intake Visit Reasons: ED F/U from [facility]. Intake Note: Bradley presents in the office today for a follow up to an ER Visit. Allergies red dye Allergy (Verified 05/07/25 11:23) Hives Seasonal Allergies Allergy (Verified 05/07/25 11:23) Unknown Medication List - Last Reconciled 05/07/25 by Lyndon Martínez MD albuterol sulfate 90 mcg/actuation 2 inhalations inhalation Q6H PRN budesonide 180 mcg/actuation (Pulmicort Flexhaler) 2 inhalations inhalation BID budesonide 32 mcg/actuation intranasal clonidine HCl 0.1 mg PO BEDTIME 30 days levocetirizine 5 mg PO DAILY omeprazole 20 mg PO DAILY Tobacco use date assessed: 05/07/25 Dental Screening Dental Screen Date: 05/07/25 Did you have a dental visit in the last 12 months?: Yes Did you have a dental problem in the last 6 months where you did not have access to dental care?: No Was dental information given to patient?: Patient has dentist HPI ED F/U from [facility]. HPI Details 24 y/o male presents to f/u ED visit [facility]. Was seen on 04/28/25 for increased R ear pain/pressure. Was diagnosed with a R ear infection. Was given an antibiotic but pt is unsure which and ED note did not say what he used. States he has finished his antibiotic. [facility] Surgical History History of wisdom tooth extraction Family History Mother No problems noted. Father No problems noted. Other ADHD Social History (Updated 05/07/25 @ 11:24 by Aylin Rosales) Housing: House Alcohol intake: never Patient Tobacco Use Status: Never used Tobacco e-Cigarette/Vaping Use: Never Used Second Hand Smoke Exposure: No Use of substances other than those prescribed or required for medical reasons: No service: No Current occupational status: employed and student Current occupational exposures/hazards: No Cognitive needs: No Hearing needs: No Vision needs: No Questionnaire PHQ-9 Over the last 2 weeks, how often have you been bothered by any of the following problems? 3. Trouble falling or staying asleep, or sleeping too much: not at all Source: Developed by Drs. Horacio Soto, Yaa Figueroa, Scout Reyez and colleagues, with an educational john from [employer]. Thrive Questionnaire Date Thrive assessed: 11/22/24 I am a: Patient What is your living situation today?: I have a steady place to live Within the past 12 months, did the food you bought not last and you didn't have the money to get more?: Never true Within the past 12 months, did you worry whether your food would run out before you got money to buy more?: Never true Do you have trouble paying for medicines?: No Do you have trouble getting transportation to medical appointments?: No Do you have trouble paying your heating and electricity bill?: No Do you have trouble taking care of your child, family member or friend?: No Do you have trouble with day-to-day activities such as bathing, preparing meals, shopping, managing finances, etc.?: No Are you currently unemployed and looking for a job?: No Are you interested in more education?: No Please select the resources that you would like help with: None THRIVE Score: 0 MARGE-7 AMB Questionnaire MARGE-7 Date MARGE - 7 assessed: 07/27/24 Source: Developed by Drs. Horacio Soto, Yaa Figueroa, Scout Reyez and colleagues, with an educational john from [employer]. Review of Systems Const Denies chills, Denies fatigue, Denies fever(s), Denies headache(s) and Denies weakness ENT Denies dizziness and Denies headache(s) Card Denies dyspnea Resp Denies cough, Denies dyspnea, Denies wheezing and Denies other (shortness of breath) Musc Denies numbness and Denies tingling Neuro Denies dizziness, Denies headache(s), Denies numbness, Denies tingling and Denies weakness Psych Denies anxiety and Denies depression Endo Denies fatigue Aller/Immun Denies wheezing Physical exam (Primary Care) Vital Signs: Last Vital Signs Temp 97.9 F 05/07/25 11:24 Pulse 92 05/07/25 11:24 Resp 14 05/07/25 11:24 BP 110/72 05/07/25 11:24 Pulse Ox 98 05/07/25 11:24 Oxygen Delivery Method Room Air 05/07/25 11:24 BMI result Body Mass Index 25.3 Tobacco/Smoking Status: Tobacco use Status Tobacco use date assessed 05/07/25 05/07/25 11:27 Patient Tobacco Use Status Never used Tobacco 05/07/25 11:27 e-Cigarette/Vaping Use Never Used 05/07/25 11:27 Thrive Assessment: Date of Thrive Assessment Date Thrive assessed 11/22/24 05/07/25 11:27 Const General: well developed; No acute distress Nutritional Appearance: well nourished Orientation/consciousness: patient oriented x3 HENMT Head: Yes normocephalic and Yes atraumatic Eyes General: appearance normal, both eyes and all related structures Pupils: Equal, round and reactive pupils present EOM: EOMs intact bilaterally Resp Effort & Inspection: normal respiratory effort Neuro General: patient oriented x3 and gait normal Cranial nerves: Yes Equal, round and reactive pupils present Psych Affect: normal affect Coding Level of Care Code Est Pt Level 3 (70930) Diagnoses Right otitis media H66.91 Aspergers' syndrome F84.5 ADHD F90.9 Assessment & Plan Assessment & Plan (1) Right otitis media: Code(s): H66.91 - Otitis media, unspecified, right ear Category: Medical Plan: Recently seen at the emergency department for right otitis media. Still has inflammation and pus behind right TM though patient has no further complaint of pain Will extend antibiotic treatment. Sending a script for Augmentin x7 days Finish all antibiotic Call or return to office if worsening or not improving (2) Aspergers' syndrome: Code(s): F84.5 - Asperger's syndrome Category: Medical (3) ADHD: Code(s): F90.9 - Attention-deficit hyperactivity disorder, unspecified type Category: Medical Plan Patient has known and longstanding diagnoses of autism (Asperger syndrome) and ADHD. Currently stable and appropriately managed Medications: New amoxicillin-pot clavulanate 500-125 mg (Augmentin) 1 tab PO Q12H 14 tabs 0RF 7 days
[2025-05-07 11:24] VITALS: BP 110/72; PULSE 92; RESP 14; TEMP 36.6; O2SAT 98; BMI 25.3
--- OUTSIDE RECORDS SUMMARY | 2025-05-07 15:14 | XMS_ITS | Encounter Summary ---
Author Organization [facility] Address [address] [place] [address] Phone Care Team Providers Care Muck Miner Name Role Phone Horacio Gray MD Primary Care Provider [phone] Encounter Details Date Type Department Care Team (Late st Contact Info) Description 01/08/2018 Conversion Encounter [facility] [address] [place] [address] Horacio Gray MD [address] [place] [address] Social History Tobacco Use Types Packs/Day Years [...] on filedocumented in this encounter Care Teams Muck Miner Relationship Specialty Start Date End Date Horacio Gray MD [address] [place] [address] PCP - General 12/28/17 05/17/24 documented as of this encounter
--- OUTSIDE RECORDS SUMMARY | 2025-05-07 15:15 | XMS_ITS | Encounter Summary ---
Author Organization [facility] Address [address] [place] [address] Phone Care Team Providers Care Church Worker Name Role Phone Horacio Gray MD Primary Care Provider [phone] Reason for Visit * Reason Comments Med Refill Encounter Details Date Type Department Care Team ([facility] st Contact Info) Description 03/13/2021 [facility]ill [facility] [address] [address] Horacio Gray MD [address] [place] [address] ADHD (attention deficit hyperactivity disorder), inattentive type [...] type documented in this encounter Care Teams Church Worker Relationship Specialty Start Date End Date Horacio Gray MD [address] [facility] [place] [address] PCP - General 12/28/17 05/17/24 documented as of this encounter
--- OUTSIDE RECORDS SUMMARY | 2025-05-07 15:15 | XMS_ITS | Clinical Summary ---
Author Organization [facility] Address [address] [place], [place] [phone] Phone Care Team Providers Care Soft Drink Powder Mixer Name Role Phone Unavailable Primary Care Provider [...] Plan (07/09/2020 3:51 PM EST): Continue with [facility] supports. Occasional clonidine for sleep still but encouraged him to try stopping as he seems to do okay on the weekends without. Assessment & Plan (04/04/2018 12:36 PM EDT): Continue with [facility] supports Allergic rhinitis due to Citizen [place] house dust shira e 09/01/2016 Assessment & [...] 74 06/28/2016 12:00 AM EST Temperature 37.1 C (98.8 F) 04/04/2018 11:07 AM EDT Respiratory Rate - - Oxygen Saturation 99% [...] 03/31/2001, Additional history exists Influenza Vaccines (#1) 2025 06/01/20, 05/15/2020, 04/20/2019, Additional history exists COVID-19 Vaccine ( season) 2025 07/30/2021, 12/05/2020, 11/14/2020 Hepatitis B Vaccines Completed [...] patient's age to complete this topic Insurance [facility] NON [facility]
--- OUTSIDE RECORDS SUMMARY | 2025-05-07 15:15 | XMS_ITS | Encounter Summary ---
Author Organization [facility] Address [address] [place] [address] Phone Care Team Providers Care Antenna Rigger Name Role Phone Horacio Gray MD Primary Care Provider [phone] Encounter Details Date Type Department Care Team (Late st Contact Info) Description 08/27/2009 Documentation [facility] [place] Family Medicine [address] [place], [place] [phone] Family Medicine, Physician [address] [place], [place] [address] Social History Tobacco Use Types Packs/Day Years [...] on filedocumented in this encounter Care Teams Antenna Rigger Relationship Specialty Start Date End Date Horacio Gray MD [address] [place] [address] PCP - General 12/28/17 05/17/24 documented as of this encounter
--- OUTSIDE RECORDS SUMMARY | 2025-05-07 15:15 | XMS_ITS | Encounter Summary ---
Author Organization [facility] Address [address] [place] [address] Phone Care Team Providers Care Environment Artist Name Role Phone Horacio Gray MD Primary Care Provider [phone] Encounter Details Date Type Department Care Team (Late st Contact Info) Description 09/25/2009 Documentation [facility] [place] [address] [place], [place] [phone] Family Medicine, Physician [address] [place], [place] [address] Social History Tobacco Use Types Packs/Day Years [...] on filedocumented in this encounter Care Teams Environment Artist Relationship Specialty Start Date End Date Horacio Gray MD [address] [place] [address] PCP - General 12/28/17 05/17/24 documented as of this encounter
== END 2025-05-07 11:58 | disposition home or self-care (01) ==
LOC: HO.HMCFM 11:08
PROVIDERS: PCP Family Medicine; Visit Provider Family Medicine
DX: H66.91 Otitis media, unspecified, right ear (principal); F84.5 Asperger's syndrome; F90.9 Attention-deficit hyperactivity disorder, unspecified type